=== PATIENT | female | born 1935 | race Caucasian/White ===

== ENCOUNTER 2019-10-09 17:58 | Inpatient (IN) ==
--- NOTE | 2019-10-09 18:25 | Emergency Department Note ---
Entered by Lizeth Ontiveros acting as a scribe for Alvarez Tobar DO History of Present Illness General Chief complaint: Arm Pain Stated complaint: CLAV/HUM FRACTURE Time Seen by Provider: 10/09/19 18:06 Source: patient and family History of Present Illness Onset (ago): day(s) 8 Location: right (humerus and clavicle ) Pain Consistency: + constant Maximum Pain Intensity: 5 Associated symptoms: + other (RUE pain, incresed swelling and black and blue brown to the broken clavicle and humerus, left arm pain per family) The patient is an 84 year old female who presents to the Emergency Room with c omplaints of arm pain. The family reports that they went to visit the patient 8 days ago at 12:00PM when they found her on the floor in her home. They assumed she was on the floor from a fall for about 2 says since her newspapers were not picked up outside. The patient reports that she hurt her shoulder and was taken to [facility] where she was told that she needed surgery to repair a broken right humerus and clavicle. Her family stopped by to visit her after work today when they noticed that her arm showed worsened black and blue brown as well as increased swelling. She denies injuring herself anywhere else but family reports that she was recently complaining of left arm pain. Family states that she is not currently on blood thinners but she was on Heparin in the past. She currently takes Synthroid, Tylenol, and Tramadol. The patient and her family offer no additional concerns at this time. Home Medications Home Medications Medication Instructions Recorded Confirmed Type acetaminophen [Tylenol] 650 mg PO QID 10/09/19 10/09/19 History cholecalciferol (vitamin D3) 1,000 unit PO DAILY 10/09/19 10/09/19 History [Vitamin D3] docusate sodium 100 mg PO BID 10/09/19 10/09/19 History levothyroxine 44 mcg PO .QSUNDAY 10/09/19 10/09/19 History levothyroxine 88 mcg PO [id number] 10/09/19 10/09/19 History menthol [Biofreeze (menthol)] 1 applic TOPICAL QID PRN 10/09/19 10/09/19 History nicotine 1 patch TRANSDERMAL DAILY 10/09/19 10/09/19 History ramipril 1.25 mg PO DAILY 10/09/19 10/09/19 History rosuvastatin 10 mg PO HS 10/09/19 10/09/19 History tramadol 25 mg PO Q8 PRN 10/09/19 10/09/19 History Allergies Allergy/AdvReac Type Severity Reaction Status Date / Time No Known Allergies Allergy Unverified 10/09/19 20:56 Past Med/Surg History Medical History No pertinent past medical history Surgical History No pertinent past surgical history Social History Feels Safe at Home: Yes Smoking Status: Never smoker Review of Systems See HPI for pertinent positives & negatives. and A total of 10 systems reviewed and were otherwise negative Physical Exam Vital Signs Vital Signs - 24 hr 10/09/19 18:03 10/09/19 19:39 10/09/19 19:50 Temperature 36.5 C Temperature Source Oral Pulse Rate 88 Pulse Rate [Left Finger] 58 L Respiratory Rate 18 18 Blood Pressure 211/67 H Blood Pressure [Left Arm] 219/91 H Blood Pressure Mean 115 Blood Pressure Mean [Left Arm] 133 Blood Pressure Position Sitting Blood Pressure Position [Left Arm] Sitting Pulse Oximetry 98 98 88 L Oxygen Delivery Method Room Air Room Air Room Air Oxygen Flow Rate Sepsis Recent Fever Within 48 Hours No Sepsis New/Unexplained Change in Mental Status No Sepsis Action Taken by Nursing No Action Required 10/09/19 20:02 10/09/19 20:12 10/09/19 22:31 Temperature Temperature Source Pulse Rate Pulse Rate [Left Finger] 64 55 L Respiratory Rate 16 22 Blood Pressure Blood Pressure [Left Arm] 192/100 H 153/71 H Blood Pressure Mean Blood Pressure Mean [Left Arm] 130 98 Blood Pressure Position Blood Pressure Position [Left Arm] Sitting Pulse Oximetry 99 100 95 Oxygen Delivery Method Nasal Cannula Nasal Cannula Nasal Cannula Oxygen Flow Rate 2 2 2 Sepsis Recent Fever Within 48 Hours Sepsis New/Unexplained Change in Mental Status Sepsis Action Taken by Nursing GENERAL: Patient is awake alert in no acute distress patient is resting comfortably and showing no signs of anxiety EYES: The conjunctivae are clear. The pupils are round and reactive. EARS, NOSE, MOUTH AND THROAT: The nose is without any evidence of any deformity. Mucous membranes are moist. Tongue is midline. NECK: The neck is nontender and supple. RESPIRATORY: Normal respiratory effort is noted there is no evidence of wheezing rhonchi or rales CARDIOVASCULAR: Regular rate and rhythm noted there no murmurs rubs or gallops normal S1 normal S2. GASTROINTESTINAL: The abdomen is soft. Abdomen is nontender. MUSCULOSKELETAL/EXTREMITIES: There is significant ecchymosis over the entire right upper extremity. The ecchymosis appears to start at the area of the distal clavicle and extends into the right hand. Pulses are symmetric in both hands. There is tenderness over the midportion of the right humerus. SKIN: There is no obvious evidence of any rash. Pedal edema was noted bilaterally. NEUROLOGIC: Patient is awake alert and oriented to person place and situation. Course Course 1809: Past medical records reviewed. The patient was evaluated in room B10. A complete history and physical exam was performed. 2139: I checked on the patient and she is resting comfortably. She will be seeing ortho on Friday. 2201: I spoke with Dr. Hernandez from ortho. At this point he recommends conservative management until ecchymosis and swelling are improved. The patient will be admitted to medicine. 2231: I spoke to Dr. Ibarra, [facility] who accepts the patient for admission. The patient verbally expressed understanding and agreement of the treatment plan. The patient will be evaluated for further treatment. Administered Medications Ioversol (Optiray 320 125ml) 116 ml IV ONCE PRN PRN Reason: Interaction Checking Stop: 10/13/19 19:22 Last Admin: 10/09/19 19:23 Dose: 116 ml Documented by: [id number] Discontinued Medications Fentanyl Citrate (Fentanyl Citrate) 50 mcg IV NOW STA Stop: 10/09/19 21:57 Last Admin: 10/09/19 22:01 Dose: 50 mcg Documented by: [id number] Furosemide (Lasix) 20 mg IV NOW STA Stop: 10/09/19 20:04 Last Admin: 10/09/19 20:12 Dose: 20 mg Documented by: [id number] Medical Decision Making Differential Diagnosis Differential diagnosis includes but is not limited to etiologies such as DVT, musculoskeletal, infection, joint effusion, trauma, lymphedema, idiopathic, CHF, as well as others were entertained. Medical Records Attestation: I reviewed the patient's medical records. Home Medications Current Medication List: was personally reviewed by me Laboratory Data Attestation: I reviewed the patient's lab results. Result diagrams: 10/09/19 18:34 10/09/19 18:33 Lab Results 10/09/19 10/09/19 10/09/19 Range/Units 18:33 18:33 18:34 WBC 4.80 (4.8-10.8) K/uL RBC 2.51 L (4.2-5.4) M/uL Hgb 9.1 L (12.0-16.0) g/dL POC Hgb (12.0-16.0) g/dl Hct 28.0 L (37-47) % POC Hct (37-47) % MCV 111.6 H (80-100) fL MCH 36.3 H (25-34) pg MCHC 32.5 (32-36) g/dL RDW Std Deviation 64.5 H (36.4-46.3) fL RDW Coeff of Amparo 16.6 H (11.5-14.5) % Plt Count 192 (130-400) K/uL MPV 10.5 H (7.4-10.4) fL Immature Gran % (Auto) 1.9 % Neut % (Auto) 59.9 % Lymph % (Auto) 30.0 % Osborne % (Auto) 4.0 % Eos % (Auto) 4.0 % Baso % (Auto) 0.2 % Immature Gran # (Auto) 0.09 H (0.00-0.02) K/uL Neut # (Auto) 2.88 (1.4-6.5) K/uL Lymph # (Auto) 1.44 (1.2-3.4) K/uL Osborne # (Auto) 0.19 (0.11-0.59) K/uL Eos # (Auto) 0.19 (0-0.5) K/uL Baso # (Auto) 0.01 (0-0.2) K/uL Absolute Nucleated RBC 0.04 H (0-0) K/uL Nucleated RBC % (auto) 0.8 % PT 10.5 (9.0-12.0) Seconds INR 1.0 (0.9-1.1) APTT 22.6 (21.0-31.0) Seconds PTT Ratio 0.8 POC Sodium (135-144) mEq/L Sodium 137 (136-145) mmol/L POC Potassium (3.3-5.0) mEq/L Potassium 3.7 (3.5-5.1) mmol/L POC Chloride (101-112) mEq/L Chloride 107 (98-107) mmol/L Carbon Dioxide 24 (21-32) mmol/L POC Total CO2 (24-31) mEq/l Anion Gap 6.0 (3-11) POC Anion Gap (16-25) mmol/L POC BUN (7-18) mg/dl BUN 23 H (7-18) mg/dl Creatinine 1.62 H (0.6-1.2) mg/dl POC Creatinine (0.6-1.3) mg/dl Est Cr Clr Drug Dosing 26.9 ml/min Est GFR ( Amer) 33.4 Est GFR (Non-Af Amer) 28.8 BUN/Creatinine Ratio 14.4 (10-20) Glucose 87 (70-99) mg/dl POC Glucose (other) (70-99) mg/dl Calcium 8.8 (8.5-10.1) mg/dl POC Ioniz Calcium Juan (1.12-1.32) mmol/l Total Bilirubin 0.5 (0.2-1) mg/dl AST 27 (15-37) U/L ALT 24 (12-78) U/L Alkaline Phosphatase 69 (45-117) U/L Troponin I < 0.015 (0-0.045) ng/ml Total Protein 6.8 (6.4-8.2) gm/dl Albumin 3.0 L (3.4-5.0) gm/dl Globulin 3.8 (2.5-4.0) gm/dl Albumin/Globulin Ratio 0.8 L (0.9-2) Lipase 171 (73-393) U/L 10/09/19 Range/Units 18:37 WBC (4.8-10.8) K/uL RBC (4.2-5.4) M/uL Hgb (12.0-16.0) g/dL POC Hgb 8.8 L (12.0-16.0) g/dl Hct (37-47) % POC Hct 26 L (37-47) % MCV (80-100) fL MCH (25-34) pg MCHC (32-36) g/dL RDW Std Deviation (36.4-46.3) fL RDW Coeff of Amparo (11.5-14.5) % Plt Count (130-400) K/uL MPV (7.4-10.4) fL Immature Gran % (Auto) % Neut % (Auto) % Lymph % (Auto) % Osborne % (Auto) % Eos % (Auto) % Baso % (Auto) % Immature Gran # (Auto) (0.00-0.02) K/uL Neut # (Auto) (1.4-6.5) K/uL Lymph # (Auto) (1.2-3.4) K/uL Osborne # (Auto) (0.11-0.59) K/uL Eos # (Auto) (0-0.5) K/uL Baso # (Auto) (0-0.2) K/uL Absolute Nucleated RBC (0-0) K/uL Nucleated RBC % (auto) % PT (9.0-12.0) Seconds INR (0.9-1.1) APTT (21.0-31.0) Seconds PTT Ratio POC Sodium 138 (135-144) mEq/L Sodium (136-145) mmol/L POC Potassium 3.7 (3.3-5.0) mEq/L Potassium (3.5-5.1) mmol/L POC Chloride 102 (101-112) mEq/L Chloride (98-107) mmol/L Carbon Dioxide (21-32) mmol/L POC Total CO2 22 L (24-31) mEq/l Anion Gap (3-11) POC Anion Gap 19.0 (16-25) mmol/L POC BUN 26 H (7-18) mg/dl BUN (7-18) mg/dl Creatinine (0.6-1.2) mg/dl POC Creatinine 1.7 H (0.6-1.3) mg/dl Est Cr Clr Drug Dosing ml/min Est GFR ( Amer) Est GFR (Non-Af Amer) BUN/Creatinine Ratio (10-20) Glucose (70-99) mg/dl POC Glucose (other) 88 (70-99) mg/dl Calcium (8.5-10.1) mg/dl POC Ioniz Calcium Juan 1.18 (1.12-1.32) mmol/l Total Bilirubin (0.2-1) mg/dl AST (15-37) U/L ALT (12-78) U/L Alkaline Phosphatase (45-117) U/L Troponin I (0-0.045) ng/ml Total Protein (6.4-8.2) gm/dl Albumin (3.4-5.0) gm/dl Globulin (2.5-4.0) gm/dl Albumin/Globulin Ratio (0.9-2) Lipase (73-393) U/L Imaging Data Radiologist's Impression: Radiology results as stated below per my review and the radiologist's interpretation: XR chest 1V portable HISTORY: 84 years-old Female Chest Pain acute atypical chest pain COMPARISON: None available TECHNIQUE: Portable AP view of the chest FINDINGS: Cardiac silhouette is enlarged. Calcified plaque of the thoracic aortic arch. Mild pulmonary vascular congestion. Bilateral reticular opacities with ill- defined left basilar consolidative densities. Mild blunting of the costophrenic angles. No pneumothorax or large pleural effusion. Ill-defined 5 mm nodular density of the lateral left midlung. Acute appearing displaced and mildly comminuted proximal right humerus fracture with 1.2 cm medial displacement. Fracture involves the greater tuberosity and surgical neck. Degenerative changes of the shoulders and spine. Mild convex left curvature of the upper thoracic spine. IMPRESSION: 1. Cardiomegaly with pulmonary vascular congestion and interstitial coarsening suggestive of pulmonary edema, atypical pneumonitis or chronic fibrotic changes. 2. Patchy left basilar opacities suggest atelectasis or pneumonitis. 3. Acute comminuted and mildly displaced fracture of the right proximal humerus. The above report was generated using voice recognition software. It may contain grammatical, syntax or spelling errors. Electronically signed by: Rafael Swartz M.D. 10/09/2019 6:[address] angio UE RT w inc wo if don HISTORY: 84 years-old Female swelling and eccchymosis acute right arm pain status post trauma COMPARISON: Chest radiograph of same day TECHNIQUE: CTA of the right upper extremity was obtained following the intravenous administration of 116 mL Optiray 320 IV contrast. 3-D coronal and sagittal MIPS were obtained from the axial data set and were submitted for re view. All measurements were obtained according to NASCET criteria. A dose lowering technique was used consistent with the principals of FELICE. FINDINGS: CTA: Imaged heart is enlarged. Calcified plaque of the aortic annulus. No thoracic aortic aneurysm or dissection. Severe calcified plaque of the thoracic aortic arch with moderate mixed plaque of the descending thoracic aorta and imaged upper abdominal aorta. 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 Severe mixed plaque at the iliac bifurcation results in 60% luminal narrowing of the proximal right common iliac artery. The right subclavian, axillary and brachial arteries appear patent. The opacified radial and ulnar arteries also appear unremarkable. No arterial occlusion identified. CT: Trace left pleural effusion. Moderate to severe emphysema. Groundglass right basilar opacities. Mild gallbladder distention with luminal filling defects suggestive of probable cholelithiasis. Cortical thinning of the right kidney. Right renal cysts. No adenopathy. Extensive colonic diverticulosis without acute diverticulitis. Fibroid uterus. There is an acute comminuted fractures of the proximal right humerus demonstrating 1.9 cm medial displacement of the humeral shaft with 1.6 cm impaction. Fracture involves the surgical neck and greater tuberosity. Humeral head is subluxed posteriorly within the glenoid fossa. Multiple comminuted bone fragments are noted adjacent to the fracture. Large samaria int effusion/hemarthrosis. There is moderate subcutaneous edema of the upper extremity, most pronounced at the level of the forearm and elbow. Demineralized appearance of the bones. Moderate glenohumeral and AC joint osteoarthritis. No additional acute fracture or dislocation identified. Degenerative changes of the carpus. There is a lipoma posterior to the right deltoid measuring up to 3.8 x 2.3 x 7.9 cm. IMPRESSION: 1. Acute comminuted, impacted and displaced right proximal humeral fracture as above with large joint effusion/hemarthrosis. 2. The right subclavian, axillary and brachial arteries appear patent and unremarkable without posttraumatic abnormality identified. 3. Moderate subcutaneous edema of the right upper extremity, likely posttraumatic 4. Trace left pleural effusion 5. Right lung base groundglass opacities suggest atelectasis or pneumonitis. 6. Fusiform dilation of the infrarenal abdominal aorta, 4.0 x 4.3 cm. 7. Additional findings as above. The above report was generated using voice recognition software. It may contain grammatical, syntax or spelling errors. Electronically signed by: Rafael Swartz M.D. 10/09/2019 7:52 PM US venous doppler UE RT HISTORY: 84 years-old Female swellinh acute pain and swelling of the right upper extremity with acute right humeral fracture COMPARISON: CTA of the right upper extremity of same day TECHNIQUE: Multiple real-time sonographic images of the right upper extremity d eep venous structures were obtained assessing grayscale appearance, color and spectral flow FINDINGS: Limited exam secondary to patient immobility. Edema is noted throughout the upper extremity. The basilic and ulnar veins are suboptimally visualized. Normal flow, and phasicity of the right M the deep venous structures without evidence of thrombus. IMPRESSION: Limited exam as above without evidence of deep venous thrombosis. The above report was generated using voice recognition software. It may contain grammatical, syntax or spelling errors. Electronically signed by: Rafael Swartz M.D. 10/09/2019 9:29 PM ECG Data Attestation: I personally reviewed and interpreted this ECG as follows: Indication: + other (fall) Rate (beats per minute): 58 Rhythm: + sinus bradycardia ECG Intervals/blocks: + Left bundle branch block ECG Findings: no PACs and no PVCs Comparison ECG Date: no prior available MDM Narrative The patient is an 84-year-old female who presented to the emergency department for an evaluation of upper extremity pain. The patient was recently involved in a trauma at home where she was admitted to a trauma center where she is from originally in [place]. The patient moved to our area to be with family members and to do rehab. The patient has a right humerus fracture which she suffered on the initial injury approximately a week ago. The patient presents to the emergency department today because of ecchymosis and swelling. According to the personal residential staff the arm was mottled. The skin is warm and dry. The pulses are symmetric in both hands. There is no DVT by Doppler and the CT angiogram did not show any acute arterial occlusion or contrast extravasation. There was significant hemarthrosis and bleeding which I assume is from the area of the fracture. I discussed the patient's laboratory and radiographic studies with her and her family members. I also discussed her case with the on-call orthopedic physician. At this time the patient does not require any specific orthopedic surgical care. She remains in a sling. Because of the other findings including pulmonary edema and hypoxia I discussed her case with the on- call [facility] hospitalist group. The patient was treated with pain medication as well as IV Lasix. She was feeling much better on subsequent reevaluation. Impression & Plan Pulmonary edema, Anemia, Hypoxia, Right humeral fracture, Traumatic hematoma of right upper arm Discharge Plan Visit Data Chief Complaint: Arm Pain Stated Complaint: CLAV/HUM FRACTURE ED Provider: Alvarez Tobar Discharge Problem: Pulmonary edema, Anemia, Hypoxia, Right humeral fracture, Traumatic hematoma of right upper arm Patient Disposition: Being Evaluated by Hospitalist Forms Stand Alone Forms: My [facility] Prescriptions Prescriptions: No Action tramadol 50 mg Tablet 25 mg PO Q8 PRN (Reason: Pain) RF: 0 levothyroxine 88 mcg Tablet 88 mcg PO [id number] RF: 0 levothyroxine 88 mcg Tablet 44 mcg PO .QSUNDAY RF: 0 docusate sodium 100 mg Tablet 100 mg PO BID RF: 0 ramipril 1.25 mg Capsule 1.25 mg PO DAILY RF: 0 nicotine 7 mg/24 hr Patch 24 Hour 1 patch TRANSDERMAL DAILY RF: 0 rosuvastatin 10 mg Tablet 10 mg PO HS RF: 0 acetaminophen [Tylenol] 325 mg Capsule 650 mg PO QID RF: 0 cholecalciferol (vitamin D3) [Vitamin D3] 1,000 unit Tablet,Chewable 1,000 unit PO DAILY RF: 0 Biofreeze (menthol) 4 % Gel 1 applic TOPICAL QID PRN (Reason: Pain) RF: 0 Referrals Referrals: Yadiel Kumar MD [Primary Care Provider] - Discharge Problem: Pulmonary edema Qualifiers: Chronicity: acute Qualified Code(s): J81.0 - Acute pulmonary edema Anemia Qualifiers: Anemia type: unspecified type Qualified Code(s): D64.9 - Anemia, unspecified Right humeral fracture Qualifiers: Encounter type: subsequent encounter Humerus Location: proximal Fracture type: closed Fracture alignment: displaced Fracture healing: with routine healing Traumatic hematoma of right upper arm Qualifiers: Encounter type: subsequent encounter Qualified Code(s): S40.021D - Contusion of right upper arm, subsequent encounter The scribe's documentation has been prepared under my direction and personally reviewed by me in its entirety. I confirm that the note above accurately reflects all work, treatment, procedures, and medical decision making performed by me.
[2019-10-09 18:51] LABS: Basophils # (auto) 0.01 K/uL (0-0.2); Basophils % (auto) 0.2 %; Eosinophils # (auto) 0.19 K/uL (0-0.5); Hemoglobin 9.1 g/dL (12.0-16.0); Immature Granulocytes # (auto) 0.09 K/uL (0.00-0.02); Immature Granulocytes % (auto) 1.9 %; Lymphocytes # (auto) 1.44 K/uL (1.2-3.4); Mean Corpuscular Hemoglobin 36.3 pg (25-34); Mean Corpuscular Hgb Conc 32.5 g/dL (32-36); Mean Corpuscular Volume 111.6 fL (80-100); Mean Platelet Volume 10.5 fL (7.4-10.4); Monocytes # (auto) 0.19 K/uL (0.11-0.59); Neutrophils # (auto) 2.88 K/uL (1.4-6.5); Neutrophils % (auto) 59.9 %; Nucleated RBC # (auto) 0.04 K/uL (0-0); Nucleated RBC % (auto) 0.8 %; Platelet Count 192 K/uL (130-400); RDW Coefficient of Variation 16.6 % (11.5-14.5); RDW Standard Deviation 64.5 fL (36.4-46.3); Red Blood Count 2.51 M/uL (4.2-5.4)
[2019-10-09 18:53] LABS: iSTAT Creatinine 1.7 mg/dl (0.6-1.3); iSTAT Hemoglobin 8.8 g/dl (12.0-16.0); iSTAT Ionized Calcium 1.18 mmol/l (1.12-1.32); iSTAT Potassium 3.7 mEq/L (3.3-5.0)
--- NOTE | 2019-10-09 18:53 | XRay Report ---
XR chest 1V portable HISTORY: 84 years-old Female Chest Pain acute atypical chest pain COMPARISON: None available TECHNIQUE: Portable AP view of the chest FINDINGS: Cardiac silhouette is enlarged. Calcified plaque of the thoracic aortic arch. Mild pulmonary vascular congestion. Bilateral reticular opacities with ill-defined left basilar consolidative densities. Mil d blunting of the costophrenic angles. No pneumothorax or large pleural effusion. Ill-defined 5 mm no dular density of the lateral left midlung. Acute appearing displaced and mildly comminuted proximal r ight humerus fracture with 1.2 cm medial displacement. Fracture involves the greater tuberosity and s urgical neck. Degenerative changes of the shoulders and spine. Mild convex left curvature of the uppe r thoracic spine. IMPRESSION: 1. Cardiomegaly with pulmonary vascular congestion and interstitial coarsening suggestive of pulmonar y edema, atypical pneumonitis or chronic fibrotic changes. 2. Patchy left basilar opacities suggest atelectasis or pneumonitis. 3. Acute comminuted and mildly displaced fracture of the right proximal humerus. The above report was generated using voice recognition software. It may contain grammatical, syntax o r spelling errors. Electronically signed by: Rafael Swartz M.D. 10/09/2019 6:51 PM
[2019-10-09 19:00] LABS: Alanine Aminotransferase 24 U/L (12-78); Aspartate Aminotransferase 27 U/L (15-37); BUN Creatinine Ratio 14.4 (10-20); Blood Urea Nitrogen 23 mg/dl (7-18); Calcium 8.8 mg/dl (8.5-10.1); Carbon Dioxide 24 mmol/L (21-32); Chloride 107 mmol/L (98-107); Creatinine Clr Calc Pharmacy 26.9 ml/min; Est GFR (African American) 33.4; Est GFR (Non-African American) 28.8; Glucose 87 mg/dl (70-99); Lipase 171 U/L (73-393); Potassium 3.7 mmol/L (3.5-5.1); Sodium 137 mmol/L (136-145)
[2019-10-09 19:01] LABS: Partial Thromboplastin Ratio 0.8; Partial Thromboplastin Time 22.6 Seconds (21.0-31.0); Prothrombin Time 10.5 Seconds (9.0-12.0)
[2019-10-09 19:05] LABS: Albumin Globulin Ratio 0.8 (0.9-2); Alkaline Phosphatase 69 U/L (45-117); Bilirubin,Total 0.5 mg/dl (0.2-1); Globulin 3.8 gm/dl (2.5-4.0); Total Protein 6.8 gm/dl (6.4-8.2); Troponin I < 0.015 ng/ml (0-0.045)
[2019-10-09] MEDS ORDERED: OPTIRAY 320 125ml IV PRN (19:23)
--- NOTE | 2019-10-09 19:54 | CT Scan Report ---
CT angio UE RT w inc wo if don HISTORY: 84 years-old Female swelling and eccchymosis acute right arm pain status post trauma COMPARISON: Chest radiograph of same day TECHNIQUE: CTA of the right upper extremity was obtained following the intravenous administration of 116 mL Optiray 320 IV contrast. 3-D coronal and sagittal MIPS were obtained from the axial data set a nd were submitted for review. All measurements were obtained according to NASCET criteria. A dose low ering technique was used consistent with the principals of FELICE. FINDINGS: CTA: Imaged heart is enlarged. Calcified plaque of the aortic annulus. No thoracic aortic aneurysm or diss ection. Severe calcified plaque of the thoracic aortic arch with moderate mixed plaque of the descend ing thoracic aorta and imaged upper abdominal aorta. 4.0 x 4.3 cm fusiform aneurysm dilation of the i nfrarenal abdominal aorta without rupture. Severe mixed plaque at the iliac bifurcation results in 60 % luminal narrowing of the proximal right common iliac artery. The right subclavian, axillary and bra chial arteries appear patent. The opacified radial and ulnar arteries also appear unremarkable. No ar terial occlusion identified. CT: Trace left pleural effusion. Moderate to severe emphysema. Groundglass right basilar opacities. Mild gallbladder distention with luminal filling defects suggestive of probable cholelithiasis. Cortical t hinning of the right kidney. Right renal cysts. No adenopathy. Extensive colonic diverticulosis witho ut acute diverticulitis. Fibroid uterus. There is an acute comminuted fractures of the proximal right humerus demonstrating 1.9 cm medial displacement of the humeral shaft with 1.6 cm impaction. Fractur e involves the surgical neck and greater tuberosity. Humeral head is subluxed posteriorly within the glenoid fossa. Multiple comminuted bone fragments are noted adjacent to the fracture. Large joint eff usion/hemarthrosis. There is moderate subcutaneous edema of the upper extremity, most pronounced at t he level of the forearm and elbow. Demineralized appearance of the bones. Moderate glenohumeral and A C joint osteoarthritis. No additional acute fracture or dislocation identified. Degenerative changes of the carpus. There is a lipoma posterior to the right deltoid measuring up to 3.8 x 2.3 x 7.9 cm. IMPRESSION: 1. Acute comminuted, impacted and displaced right proximal humeral fracture as above with large joint effusion/hemarthrosis. 2. The right subclavian, axillary and brachial arteries appear patent and unremarkable without posttr aumatic abnormality identified. 3. Moderate subcutaneous edema of the right upper extremity, likely posttraumatic 4. Trace left pleural effusion 5. Right lung base groundglass opacities suggest atelectasis or pneumonitis. 6. Fusiform dilation of the infrarenal abdominal aorta, 4.0 x 4.3 cm. 7. Additional findings as above. The above report was generated using voice recognition software. It may contain grammatical, syntax o r spelling errors. Electronically signed by: Rafael Swartz M.D. 10/09/2019 7:52 PM
[2019-10-09] MEDS ORDERED: FUROSEMIDE 40 MG/4 ML VIAL IV STA (20:03)
--- NOTE | 2019-10-09 21:32 | Ultrasound Report ---
US venous doppler UE RT HISTORY: 84 years-old Female swellinh acute pain and swelling of the right upper extremity with acut e right humeral fracture COMPARISON: CTA of the right upper extremity of same day TECHNIQUE: Multiple real-time sonographic images of the right upper extremity deep venous structures were obtained assessing grayscale appearance, color and spectral flow FINDINGS: Limited exam secondary to patient immobility. Edema is noted throughout the upper extremity. The basi lic and ulnar veins are suboptimally visualized. Normal flow, and phasicity of the right M the deep v enous structures without evidence of thrombus. IMPRESSION: Limited exam as above without evidence of deep venous thrombosis. The above report was generated using voice recognition software. It may contain grammatical, syntax o r spelling errors. Electronically signed by: Rafael Swartz M.D. 10/09/2019 9:29 PM
[2019-10-09] MEDS ORDERED: fentaNYL citrate 100 MCG/2 ML VIAL IV STA (21:56)
--- NOTE | 2019-10-10 00:53 | History & Physical Report ---
Date of Service October 10, 2019 Assessment & Plan (1) Traumatic hematoma of right upper arm: Patient is a 84yo F PMH hypothyroid, HTN, HLD, current daily smoker, who presents with worsening R arm pain and swelling 1 week after traumatic fall which resulted in R clavicle and R humerus fracture R humeral Fracture, hematoma -Admit to med/surg -Consult ortho, appreciate recs -Monitor H&H -Pain control Hypoxia -Appears transient -Pt is lifelong smoker; ?pulm edema on exam -On my assessment, pt 95% on room air -Cont to monitor CATALINA -unknown baseline -Gentle IVF Hypothyroid -Cont home regimen HTN/HLD -Cont home meds Code: Full, however unable to clarify with patient Dispo: admit to med/surg DVTP: holding in light of hematoma; SCDs. (2) Right humeral fracture: (3) Hypoxia: (4) Hypothyroid: (5) HTN (hypertension): (6) Hyperlipidemia: (7) CATALINA (acute kidney injury): History of Present Illness Chief Complaint: R arm pain and swelling Primary Care Provider: Yadiel Kumar MD Patient is a 84yo F transplant from [place], [facility] hypothyroid, HTN, HLD, current daily smoker, who presents with worsening R arm pain and swelling 1 week after traumatic fall which resulted in R clavicle and R humerus fracture. Patient lives alone in [place], and (per hx provided by family at bedside), she was found in her house on 10/03, with last well known 10/31; she was brought to a hospital in [place], [place] where she was treated in a trauma unit for a fractured R humerus and clavicle. Family frustrated as they were told she would have a nerve block for pain, then she would have surgery, and then conservative management was opted for. She was moved to a nursing facility ([facility]) from [place] on 10/07 to be closer to family here. Relative notes that while in [place], she would occasionally dip her oxygen level, but a test (2step?) was performed prior to discharge and it was deemed she did not qualify for oxygen. Relative notes her mental status has declined lately, but no formal diagnosis of dementia. Mental status significantly altered since injury. She also has a scheduled for an outpatient ortho appointment on 10/11/[address] Jj. In the ER, CTAngio of the arm revealed a large effusion/hemarthrosis. US was negative for PE. Ortho was called who recommend no action at this time, but would see this patient in the morning. Patient was noted to have her oxygen saturation drop to 88% on room air while in the ER. Due to pain level and new oxygen requirement, she will be admitted for further evaluation. Allergies Allergy/AdvReac Type Severity Reaction Status Date / Time No Known Allergies Allergy Unverified 10/09/19 20:56 Home Medications Home Medications Medication Instructions Recorded Confirmed Type acetaminophen [Tylenol] 650 mg PO QID 10/09/19 10/09/19 History cholecalciferol (vitamin D3) 1,000 unit PO DAILY 10/09/19 10/09/19 History [Vitamin D3] docusate sodium 100 mg PO BID 10/09/19 10/09/19 History levothyroxine 44 mcg PO .QSUNDAY 10/09/19 10/09/19 History levothyroxine 88 mcg PO 6XWK 10/09/19 10/09/19 History menthol [Biofreeze (menthol)] 1 applic TOPICAL QID PRN 10/09/19 10/09/19 History nicotine 1 patch TRANSDERMAL DAILY 10/09/19 10/09/19 History ramipril 1.25 mg PO DAILY 10/09/19 10/09/19 History rosuvastatin 10 mg PO HS 10/09/19 10/09/19 History tramadol 25 mg PO Q8 PRN 10/09/19 10/09/19 History Past Med/Surg History Medical History No pertinent past medical history Surgical History No pertinent past surgical history Social History (Updated 10/10/19 @ 02:18 by Halle Rowe MD) Preferred Language: Bengali Communication Ability: Effective Post Commander Required: No Current Living Situation: Personal Care Facility Other Information That Helps Us Care for You: No Feels Safe at Home: Yes Safety Concerns: Feels Safe At This Time Smoking Status: Current every day smoker Tobacco Type: cigarettes ; Do You Dip or Chew Tobacco: No ; Smoking End Date: 1 week ago ; Second Hand Exposure: No ; Tobacco Cessation Education Requested by Patient: No Hx Alcohol Use: Yes Hx Substance Use: No Review of Systems Review of Systems: All systems reviewed & are unremarkable except as noted in HPI & below and Unobtainable due to cognitive status Respiratory: no dyspnea Cardiovascular: no chest pain Gastrointestinal: no abdominal pain, no nausea and no vomiting Physical Exam Constitutional: WD/WN, vitals as above + obese Eyes: PERRL, conjunctivae normal, anicteric sclerae ENMT: external ear and nose normal, oropharynx normal Neck: normal visual inspection Respiratory: Auscultation: + diminished lung sounds Pt unable to follow commands to expose back or take deep breaths Cardiovascular: RRR, no murmur, no edema Gastrointestinal (Abdomen): normal bowel sounds, soft, nontender, no hepatosplenomegaly Musculoskeletal: Head/Neck/Chest: normocephalic and head atraumatic Extensive hematoma involving entirety of R arm and shoulder; R arm is tender and swollen. Both arms neurovascularly intact. Skin: no rashes, warm and dry Trauma: + contusion and + hematoma Neurologic: PERRL, EOMI, accommodation nl, no face palsy, no dysarthria moves all extremities Psychiatric: Orientation: alert; + not oriented x 3 Results & Data Vital Signs (Past 12 Hours) Vital Signs Temp Pulse Pulse Resp BP BP Pulse Ox 10/09/19 22:31 55 L 22 153/71 H 95 10/09/19 20:12 64 16 192/100 H 100 10/09/19 20:02 99 10/09/19 19:50 88 L 10/09/19 19:39 58 L 18 219/91 H 98 10/09/19 18:03 97.7 F 88 18 211/67 H 98 Laboratory Results 10/09/19 10/09/19 10/09/19 Range/Units 18:37 18:34 18:33 WBC 4.80 (4.8-10.8) K/uL RBC 2.51 L (4.2-5.4) M/uL Hgb 9.1 L (12.0-16.0) g/dL POC Hgb 8.8 L (12.0-16.0) g/dl Hct 28.0 L (37-47) % POC Hct 26 L (37-47) % MCV 111.6 H (80-100) fL MCH 36.3 H (25-34) pg MCHC 32.5 (32-36) g/dL RDW Std Deviation 64.5 H (36.4-46.3) fL RDW Coeff of Amparo 16.6 H (11.5-14.5) % Plt Count 192 (130-400) K/uL MPV 10.5 H (7.4-10.4) fL Immature Gran % (Auto) 1.9 % Neut % (Auto) 59.9 % Lymph % (Auto) 30.0 % [place] % (Auto) 4.0 % Eos % (Auto) 4.0 % Baso % (Auto) 0.2 % Immature Gran # (Auto) 0.09 H (0.00-0.02) K/uL Neut # (Auto) 2.88 (1.4-6.5) K/uL Lymph # (Auto) 1.44 (1.2-3.4) K/uL [place] # (Auto) 0.19 (0.11-0.59) K/uL Eos # (Auto) 0.19 (0-0.5) K/uL Baso # (Auto) 0.01 (0-0.2) K/uL Absolute Nucleated RBC 0.04 H (0-0) K/uL Nucleated RBC % (auto) 0.8 % PT (9.0-12.0) Seconds INR (0.9-1.1) APTT (21.0-31.0) Seconds PTT Ratio POC Sodium 138 (135-144) mEq/L Sodium 137 (136-145) mmol/L POC Potassium 3.7 (3.3-5.0) mEq/L Potassium 3.7 (3.5-5.1) mmol/L POC Chloride 102 (101-112) mEq/L Chloride 107 (98-107) mmol/L Carbon Dioxide 24 (21-32) mmol/L POC Total CO2 22 L (24-31) mEq/l Anion Gap 6.0 (3-11) POC Anion Gap 19.0 (16-25) mmol/L POC BUN 26 H (7-18) mg/dl BUN 23 H (7-18) mg/dl Creatinine 1.62 H (0.6-1.2) mg/dl POC Creatinine 1.7 H (0.6-1.3) mg/dl Est Cr Clr Drug Dosing 26.9 ml/min Est GFR ( Amer) 33.4 Est GFR (Non-Af Amer) 28.8 BUN/Creatinine Ratio 14.4 (10-20) Glucose 87 (70-99) mg/dl POC Glucose (other) 88 (70-99) mg/dl Calcium 8.8 (8.5-10.1) mg/dl POC Ioniz Calcium Juan 1.18 (1.12-1.32) mmol/l Total Bilirubin 0.5 (0.2-1) mg/dl AST 27 (15-37) U/L ALT 24 (12-78) U/L Alkaline Phosphatase 69 (45-117) U/L Troponin I < 0.015 (0-0.045) ng/ml Total Protein 6.8 (6.4-8.2) gm/dl Albumin 3.0 L (3.4-5.0) gm/dl Globulin 3.8 (2.5-4.0) gm/dl Albumin/Globulin Ratio 0.8 L (0.9-2) Lipase 171 (73-393) U/L 10/09/19 Range/Units 18:33 WBC (4.8-10.8) K/uL RBC (4.2-5.4) M/uL Hgb (12.0-16.0) g/dL POC Hgb (12.0-16.0) g/dl Hct (37-47) % POC Hct (37-47) % MCV (80-100) fL MCH (25-34) pg MCHC (32-36) g/dL RDW Std Deviation (36.4-46.3) fL RDW Coeff of Amparo (11.5-14.5) % Plt Count (130-400) K/uL MPV (7.4-10.4) fL Immature Gran % (Auto) % Neut % (Auto) % Lymph % (Auto) % [place] % (Auto) % Eos % (Auto) % Baso % (Auto) % Immature Gran # (Auto) (0.00-0.02) K/uL Neut # (Auto) (1.4-6.5) K/uL Lymph # (Auto) (1.2-3.4) K/uL [place] # (Auto) (0.11-0.59) K/uL Eos # (Auto) (0-0.5) K/uL Baso # (Auto) (0-0.2) K/uL Absolute Nucleated RBC (0-0) K/uL Nucleated RBC % (auto) % PT 10.5 (9.0-12.0) Seconds INR 1.0 (0.9-1.1) APTT 22.6 (21.0-31.0) Seconds PTT Ratio 0.8 POC Sodium (135-144) mEq/L Sodium (136-145) mmol/L POC Potassium (3.3-5.0) mEq/L Potassium (3.5-5.1) mmol/L POC Chloride (101-112) mEq/L Chloride (98-107) mmol/L Carbon Dioxide (21-32) mmol/L POC Total CO2 (24-31) mEq/l Anion Gap (3-11) POC Anion Gap (16-25) mmol/L POC BUN (7-18) mg/dl BUN (7-18) mg/dl Creatinine (0.6-1.2) mg/dl POC Creatinine (0.6-1.3) mg/dl Est Cr Clr Drug Dosing ml/min Est GFR ( Amer) Est GFR (Non-Af Amer) BUN/Creatinine Ratio (10-20) Glucose (70-99) mg/dl POC Glucose (other) (70-99) mg/dl Calcium (8.5-10.1) mg/dl POC Ioniz Calcium Juan (1.12-1.32) mmol/l Total Bilirubin (0.2-1) mg/dl AST (15-37) U/L ALT (12-78) U/L Alkaline Phosphatase (45-117) U/L Troponin I (0-0.045) ng/ml Total Protein (6.4-8.2) gm/dl Albumin (3.4-5.0) gm/dl Globulin (2.5-4.0) gm/dl Albumin/Globulin Ratio (0.9-2) Lipase (73-393) U/L Diagnostic Findings XR chest 1V portable HISTORY: 84 years-old Female Chest Pain acute atypical chest pain COMPARISON: None available TECHNIQUE: Portable AP view of the chest FINDINGS: Cardiac silhouette is enlarged. Calcified plaque of the thoracic aortic arch. Mild pulmonary vascular congestion. Bilateral reticular opacities with ill- defined left basilar consolidative densities. Mild blunting of the costophrenic angles. No pneumothorax or large pleural effusion. Ill-defined 5 mm nodular density of the lateral left midlung. Acute appearing displaced and mildly comminuted proximal right humerus fracture with 1.2 cm medial displacement. Fracture involves the greater tuberosity and surgical neck. Degenerative changes of the shoulders and spine. Mild convex left curvature of the upper thoracic spine. IMPRESSION: 1. Cardiomegaly with pulmonary vascular congestion and interstitial coarsening suggestive of pulmonary edema, atypical pneumonitis or chronic fibrotic changes. 2. Patchy left basilar opacities suggest atelectasis or pneumonitis. 3. Acute comminuted and mildly displaced fracture of the right proximal humerus. CT angio UE RT w inc wo if don HISTORY: 84 years-old Female swelling and eccchymosis acute right arm pain status post trauma COMPARISON: Chest radiograph of same day TECHNIQUE: CTA of the right upper extremity was obtained following the intravenous administration of 116 mL Optiray 320 IV contrast. 3-D coronal and sagittal MIPS were obtained from the axial data set and were submitted for review. All measurements were obtained according to NASCET criteria. A dose lowering technique was used consistent with the principals of FELICE. FINDINGS: CTA: Imaged heart is enlarged. Calcified plaque of the aortic annulus. No thoracic aortic aneurysm or dissection. Severe calcified plaque of the thoracic aortic arch with moderate mixed plaque of the descending thoracic aorta and imaged upper abdominal aorta. 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 Severe mixed plaque at the iliac bifurcation results in 60% luminal narrowing of the proximal right common iliac artery. The right subclavian, axillary and brachial arteries appear patent. The opacified radial and ulnar arteries also appear unremarkable. No arterial occlusion identified. CT: Trace left pleural effusion. Moderate to severe emphysema. Groundglass right basilar opacities. Mild gallbladder distention with luminal filling defects suggestive of probable cholelithiasis. Cortical thinning of the right kidney. Right renal cysts. No adenopathy. Extensive colonic diverticulosis without acute diverticulitis. Fibroid uterus. There is an acute comminuted fractures of the proximal right humerus demonstrating 1.9 cm medial displacement of the humeral shaft with 1.6 cm impaction. Fracture involves the surgical neck and greater tuberosity. Humeral head is subluxed posteriorly within the glenoid fossa. Multiple comminuted bone fragments are noted adjacent to the fracture. Large joint effusion/hemarthrosis. There is moderate subcutaneous edema of the upper extremity, most pronounced at the level of the forearm and elbow. Demineralized appearance of the bones. Moderate glenohumeral and AC joint osteoarthritis. No additional acute fracture or dislocation identified. Degenerative changes of the carpus. There is a lipoma posterior to the right deltoid measuring up to 3.8 x 2.3 x 7.9 cm. IMPRESSION: 1. Acute comminuted, impacted and displaced right proximal humeral fracture as above with large joint effusion/hemarthrosis. 2. The right subclavian, axillary and brachial arteries appear patent and unremarkable without posttraumatic abnormality identified. 3. Moderate subcutaneous edema of the right upper extremity, likely posttraumatic 4. Trace left pleural effusion 5. Right lung base groundglass opacities suggest atelectasis or pneumonitis. 6. Fusiform dilation of the infrarenal abdominal aorta, 4.0 x 4.3 cm. 7. Additional findings as above. The above report was generated using voice recognition software. It may contain grammatical, syntax or spelling errors. US venous doppler UE RT HISTORY: 84 years-old Female swellinh acute pain and swelling of the right upper extremity with acute right humeral fracture COMPARISON: CTA of the right upper extremity of same day TECHNIQUE: Multiple real-time sonographic images of the right upper extremity deep venous structures were obtained assessing grayscale appearance, color and spectral flow FINDINGS: Limited exam secondary to patient immobility. Edema is noted throughout the upper extremity. The basilic and ulnar veins are suboptimally visualized. Normal flow, and phasicity of the right M the deep venous structures without evidence of thrombus. IMPRESSION: Limited exam as above without evidence of deep venous thrombosis. Code Status & VTE Plan Code Status Full, relative not sure of wishes VTE Prophylaxis Plan VTE Prophylaxis will be ordered: Yes Supervising Physician Co-Signing Physician Notes Patient was seen and examined by me personally. I reviewed the chart, the orders and discussed the case in detail with Dr. Halle Rowe MD . I read this H&P and agree with its contents to entirety. Resident Activity Tracking Resident Involvement: Resident Care Provided Care Provided: Adult Hospital Medicine (1) Traumatic hematoma of right upper arm Encounter type: subsequent encounter Qualified Code(s): S40.021D - Contusion of right upper arm, subsequent encounter (2) Right humeral fracture Encounter type: subsequent encounter Fracture alignment: displaced Fracture healing: with routine healing Fracture type: closed Humerus Location: proximal
[2019-10-10] MEDS ORDERED: ONDANSETRON INJ 2 MG/ML 2 ML VIAL IV PRN (01:59)
[2019-10-10] MEDS ORDERED: ALUMINUM/MAGNESIUM SUSP 30 ML UDC PO PRN (01:59)
[2019-10-10] MEDS: ACETAMINOPHEN 325 MG TAB PO PRN ×2 (02:43→18:49)
[2019-10-10] MEDS: POLYETHYLENE (MIRALAX) 17 GM PACK PO PRN (02:45)
[2019-10-10] MEDS ORDERED: SODIUM CHLORIDE 0.9% 1000ML 1,000 ML IV SCH (03:00)
--- NOTE | 2019-10-10 04:38 | Billing Data ---
Coding Level of Care Code 45066 Initial Inpt Care Lvl 2
[2019-10-10 05:26] LABS: Basophils # (auto) 0.02 K/uL (0-0.2); Basophils % (auto) 0.4 %; Eosinophils # (auto) 0.21 K/uL (0-0.5); Eosinophils % (auto) 4.3 %; Hemoglobin 9.1 g/dL (12.0-16.0); Immature Granulocytes # (auto) 0.08 K/uL (0.00-0.02); Immature Granulocytes % (auto) 1.6 %; Lymphocytes # (auto) 1.34 K/uL (1.2-3.4); Lymphocytes % (auto) 27.6 %; Mean Corpuscular Hemoglobin 36.3 pg (25-34); Mean Corpuscular Hgb Conc 32.5 g/dL (32-36); Mean Corpuscular Volume 111.6 fL (80-100); Monocytes # (auto) 0.29 K/uL (0.11-0.59); Neutrophils # (auto) 2.91 K/uL (1.4-6.5); Neutrophils % (auto) 60.1 %; Nucleated RBC # (auto) 0.04 K/uL (0-0); Nucleated RBC % (auto) 0.7 %; Platelet Count 183 K/uL (130-400); RDW Coefficient of Variation 16.5 % (11.5-14.5); Red Blood Count 2.51 M/uL (4.2-5.4); White Blood Count 4.85 K/uL (4.8-10.8)
[2019-10-10] MEDS: MoRPHine SULFATE 2 MG/ML CARP IV PRN ×3 (05:27→20:15)
[2019-10-10 05:48] LABS: Macrocytosis Present; Polychromasia 1+; Toxic Vacuolation 1+
[2019-10-10 05:55] LABS: BUN Creatinine Ratio 13.9 (10-20); Calcium 8.8 mg/dl (8.5-10.1); Creatinine Clr Calc Pharmacy 27.3 ml/min; Est GFR (African American) 34.7; Potassium 3.7 mmol/L (3.5-5.1)
[2019-10-10] MEDS ORDERED: LEVOTHYROXINE SODIUM 88 MCG TABLET PO SCH (06:30)
--- NOTE | 2019-10-10 08:37 | Orthopedic Consultation ---
Date of Consultation October 10, 2019 Assessment & Plan (1) Right humeral fracture: We need to get some x-rays of the right shoulder. We do not have any original x-rays from [place]. We will continue to treat her in an arm sling. This is an expected amount of hematoma and swelling after this type of fracture. This fracture tends to bleed a lot. The ecchymosis and swelling can get worse over the first 2 weeks from the injury and then usually goes away by 4 weeks. We will get some x-rays of the shoulder. There is no emergent operative indications. She can follow-up with Dr. Jj this week as scheduled. She needs to be in a right arm sling at all times. She is orthopedically stable for discharge. Present on Admission?: Yes History of Present Illness Reason for Consultation: Right proximal humerus fracture Attending Physician: Radha Barragan MD History of Present Illness Zuleyka is a pleasant 84-year-old female who fell from a standing height about a week ago. She was living near [facility] at that time. She went to a local emergency room and radiographs demonstrated a right proximal humerus fracture. Over the last week she has moved to [place], a personal fpc in [place] to be near family. She has been having a lot of of ecchymosis and swelling of her right shoulder. She came to the emergency room and was admitted for medical observation. She currently has an appointment to see Dr. Jj this week. Orthopedics was consulted to evaluate and treat. Allergies Allergy/AdvReac Type Severity Reaction Status Date / Time No Known Allergies Allergy Unverified 10/09/19 20:56 Home Medications Home Medications Medication Instructions Recorded Confirmed Type acetaminophen [Tylenol] 650 mg PO QID 10/09/19 10/09/19 History cholecalciferol (vitamin D3) 1,000 unit PO DAILY 10/09/19 10/09/19 History [Vitamin D3] docusate sodium 100 mg PO BID 10/09/19 10/09/19 History levothyroxine 44 mcg PO .QSUNDAY 10/09/19 10/09/19 History levothyroxine 88 mcg PO [id number] 10/09/19 10/09/19 History menthol [Biofreeze (menthol)] 1 applic TOPICAL QID PRN 10/09/19 10/09/19 History nicotine 1 patch TRANSDERMAL DAILY 10/09/19 10/09/19 History ramipril 1.25 mg PO DAILY 10/09/19 10/09/19 History rosuvastatin 10 mg PO HS 10/09/19 10/09/19 History tramadol 25 mg PO Q8 PRN 10/09/19 10/09/19 History Patient History Medical History No pertinent past medical history Surgical History No pertinent past surgical history Social History Preferred Language: Burundian Communication Ability: Effective Kelp Or Seagrass Gatherer Required: No Current Living Situation: Personal Care Facility Other Information That Helps Us Care for You: No Feels Safe at Home: Yes Safety Concerns: Feels Safe At This Time Smoking Status: Current every day smoker Tobacco Type: cigarettes ; Do You Dip or Chew Tobacco: No ; Smoking End Date: 1 week ago ; Second Hand Exposure: No ; Tobacco Cessation Education Requested by Patient: No Hx Alcohol Use: Yes Hx Substance Use: No Review of Systems Constitutional: no fever, no chills, no fatigue, no anorexia, no weight loss and no weight gain Ear, Nose, Mouth, Throat: no ear pain, no epistaxis, no sinus pain/pressure, no mouth lesions, no bleeding gums and no sore throat Respiratory: no cough, no dyspnea, no hemoptysis and no wheezing Cardiovascular: no chest pain, no palpitations, no syncope and no edema Gastrointestinal: no heartburn, no nausea, no vomiting and no change in bowel habits Genitourinary: no dysuria, no urinary frequency, no urinary incontinence, no hematuria and no flank pain Musculoskeletal: as per Subjective / HPI Integumentary: no rash and no lesions Neurologic: no paralysis, no tingling, no numbness, no tremor(s), no seizure- like activity, no dizziness, no headache(s), no confusion and no memory loss Psychiatric: no depression, no abnormal sleep pattern, no anxiety and no con fusion Endocrine: no polydipsia, no polyphagia, no polyuria, no cold intolerance and no heat intolerance Hematologic / Lymphatic: no easy bleeding, no easy bruising, no coagulopathy and no lymphadenopathy Allergy / Immunological: no urticaria, no dyspnea and no rash Physical Exam Musculoskeletal: On physical examination of her right arm, there is a lot of ecchymosis and swelling. This is expected after this type of fracture. There are no abrasions, lesions, or lacerations of her skin. She has active motion of all of her fingers and active extension and flexion of her right wrist. She is a lot of tenderness palpation of her proximal humerus. I was unable to do a full strength evaluation. She is wearing her sling as instructed. Results & Data Vital Signs (Past 12 Hours) Vital Signs Temp Pulse Resp BP Pulse Ox 10/10/19 07:40 36.6 C 57 L 18 153/81 H 92 10/10/19 04:00 157/79 H 10/10/19 01:45 36.5 C 92 H 14 178/81 H 92 10/10/19 01:05 61 24 173/66 H 96 10/09/19 22:31 55 L 22 153/71 H 95 Laboratory Results H & H 10/09/19 10/10/19 Range/Units 18:34 05:07 Hgb 9.1 L 9.1 L (12.0-16.0) g/dL Hct 28.0 L 28.0 L (37-47) % Coagulation 10/09/19 Range/Units 18:33 INR 1.0 (0.9-1.1) Diagnostic Findings Chest x-ray reviewed by myself in the office today does show a transverse right proximal humerus fracture. I do not see any significant clavicle fracture. It is only an AP view. PG Care Time/CCT Total # of Minutes Spent Total Time Spent with Patient: Total time spent is greater than 50% in coordination of care (as documented) at patient's floor/unit and/or counseling patient: (1) Right humeral fracture Encounter type: subsequent encounter Fracture alignment: displaced Fracture healing: with routine healing Fracture type: closed Humerus Location: proximal
[2019-10-10] MEDS: ENALAPRIL MALEATE 5 MG TAB PO SCH (08:56)
[2019-10-10] MEDS: NICOTINE 14 MG/24 HR PATCH TD SCH (08:57)
[2019-10-10] MEDS: DOCUSATE SODIUM 100 MG CAP PO SCH ×2 (08:57→20:13)
--- NOTE | 2019-10-10 10:01 | XRay Report ---
XR shoulder RT min 2V routine HISTORY: 84 years-old Female Right proximal humerus fracture acute right upper extremity pain COMPARISON: Chest radiograph 10/09/2019 TECHNIQUE: 2 views of the right shoulder FINDINGS: Acute comminuted and displaced fracture of the right proximal humerus with fractures involving the gr eater tuberosity and surgical neck redemonstrated with unchanged alignment. Demineralized appearance of the bones with mild to moderate glenohumeral and moderate AC joint degenerative change. Soft tissu e swelling surrounds the right shoulder. Imaged lung saldivar appear clear. IMPRESSION: Unchanged alignment of the acute comminuted and displaced proximal humeral fracture. The above report was generated using voice recognition software. It may contain grammatical, syntax o r spelling errors. Electronically signed by: Rafael Swartz M.D. 10/10/2019 10:00 AM
--- NOTE | 2019-10-10 13:16 | Discharge Summary ---
Date of Service October 10, 2019 Admission HPI Per Admitting Provider Patient is a 84yo F transplant from [place], [facility] hypothyroid, HTN, HLD, current daily smoker, who presents with worsening R arm pain and swelling 1 week after traumatic fall which resulted in R clavicle and R humerus fracture. Patient lives alone in [place], and (per hx provided by family at bedside), she was found in her house on 10/03, with last well known 10/31; she was brought to a hospital in [place], [place] where she was treated in a trauma unit for a fractured R humerus and clavicle. Family frustrated as they were told she would have a nerve block for pain, then she would have surgery, and then conservative management was opted for. She was moved to a nursing facility ([facility] [place] [facility]) from [place] on 10/07 to be closer to family here. Relative notes that while in [place], she would occasionally dip her oxygen level, but a test (2step?) was performed prior to discharge and it was deemed she did not qualify for oxygen. Relative notes her mental status has declined lately, but no formal diagnosis of dementia. Mental status significantly altered since injury. She also has a scheduled for an outpatient ortho appointment on 10/11/[address] Jj. In the ER, CTAngio of the arm revealed a large effusion/hemarthrosis. US was negative for PE. Ortho was called who recommend no action at this time, but would see this patient in the morning. Patient was noted to have her oxygen saturation drop to 88% on room air while in the ER. Due to pain level and new oxygen requirement, she will be admitted for further evaluation. Discharge Data Allergies Allergy/AdvReac Type Severity Reaction Status Date / Time No Known Allergies Allergy Unverified 10/09/19 20:56 Consultations 10/09/19 22:22 ED Decision to Admit Stat 10/10/19 01:59 Consult Case Management - Discharge Planning Routine Consult Orthopedic Surgery Routine Ordered Studies 10/09/19 18:15 CT angio UE RT w inc wo if don Stat 10/09/19 19:57 US venous doppler UE RT Stat Hospital Course (1) Traumatic hematoma of right upper arm: (2) Right humeral fracture: (3) Hypoxia: (4) Hypothyroid: (5) HTN (hypertension): (6) Hyperlipidemia: (7) CATALINA (acute kidney injury): Discharge Plan Discharge Items Patient Disposition: Personal [facility] Reason For Visit: HEMATOMA, NEW OXYGEN DEMAND Discharge Diagnosis: R humerus fracture anemia borderline hypoxia Condition on Discharge: Good Health Concerns: please remain tobacco free. consider medication assistance like nicotine patches. please talk to your PCP about this Activity: Resume your previous activity Activity Comment: as tolerated. assistance to avoid falling. further instructi ons per ortho Lifting: None Non-emergency contact: Primary Care Provider and Surgeon Call non-emergency contact if: your pain is worsening Follow-up/Referrals: Yadiel Kumar MD [Primary Care Provider] - Nathan Jj MD [Surgeon] - (as scheduled on 10.11.2019) Diet: Regular Addtl Attending Provider Instructions: physical therapy at your assisted living, please ask your PCP for a script for the PT and a referral if your Tramadol is not controlling your pain, please talk to your PCP, so pain meds can be titrated Pending Studies at Discharge: No Stand-Alone Forms: My [employer], Smoking Cessation Skilled Items Patient informed of condition?: Yes DNR: No Discharge Level of Care: Other Communicable Disease: No Discharge Prognosis: Stable Lines: None Urinary Catheter: No Medications and DC Order Prescriptions: Continued tramadol 50 mg Tablet 25 mg PO Q8 PRN (Reason: Pain) RF: 0 levothyroxine 88 mcg Tablet 88 mcg PO 6XWK RF: 0 levothyroxine 88 mcg Tablet 44 mcg PO .QSUNDAY RF: 0 docusate sodium 100 mg Tablet 100 mg PO BID RF: 0 ramipril 1.25 mg Capsule 1.25 mg PO DAILY RF: 0 nicotine 7 mg/24 hr Patch 24 Hour 1 patch TRANSDERMAL DAILY RF: 0 rosuvastatin 10 mg Tablet 10 mg PO HS RF: 0 acetaminophen [Tylenol] 325 mg Capsule 650 mg PO QID RF: 0 cholecalciferol (vitamin D3) [Vitamin D3] 1,000 unit Tablet,Chewable 1,000 unit PO DAILY RF: 0 Biofreeze (menthol) 4 % Gel 1 applic TOPICAL QID PRN (Reason: Pain) RF: 0 Discharge Orders: Discharge Order (Routine); Ordered 10/10/19 Ordered By: Radha Barragan Admission Data Admit Date/Time: 10/10/19 00:47 Attending Provider: Radha Barragan Admit Provider: Halle Rowe Primary Care Provider: Yadiel Kumar Other Providers: Donell Ibarra ; Fermín Hernandez
--- NOTE | 2019-10-10 14:10 | Hospitalist Progress Note ---
Date of Service October 10, 2019 Assessment & Plan (1) Acute respiratory failure with hypoxia: fluctuating 02 sats but also mostly hypoxic. 84% on ra at rest today. mild STERLING but no rest SOB lungs clear CTA chest suggests mild CHF. creat=1.57 makes empiric diuresis a little riskier mod-sev emphysema by CT and ongoing cigarette smoker some atelectasis which could be from recent trauma and immobility ruled out for VTE ...smoking cessation counseling ...nicotine patch ...incentive spirometry ...Nebs ...stop IVF and give single dose of IV diuretics ...pulmonary consultation ...may need chronic home 02 (2) Emphysema lung: see problem #1... ARF w/ hypoxia (3) Cigarette smoker: see problem #1... ARF w/ hypoxia (4) Right humeral fracture: appreciate Ortho input nonsurgical treatment planned for now gentle analgesics ortho reports that the volume of hemarthrosis is as expected for this injury. ...should re-absorb so just monitor ...associated acute blood loss anemia. stable and dont expect it to drop further f/u with outpt ortho (5) Clavicle fracture: see problem above....humerus fx Present on Admission?: Yes (6) Traumatic hematoma of right upper arm: see problem above....humerus fx Present on Admission?: Yes (7) Acute blood loss anemia: see problem above....humerus fx Present on Admission?: Yes (8) CATALINA (acute kidney injury): elevated creat but not sure what is baseline CATALINA vs CKD3 or a combination of both ...obtain records from [facility] ...monitor closely Present on Admission?: Yes (9) Hypothyroid: cont LT4 check records from [facility] as it is very likely they checked TFTs last week Present on Admission?: Yes (10) HTN (hypertension): continue DON-I increase dose if SBP persistently elevated. was 150-170s but 119 now Present on Admission?: Yes (11) Hyperlipidemia: continue statin Present on Admission?: Yes Subjective R arm pain is controlled. 1 mild assist to help her in and out of bed mostly to held hold/support the RUE RUE is in sling appreciate orthopedic input. 02 sat = 84% on ra. no SOB at rest. she is a smoker. No explanation for the hypoxia so further evaluation is ordered CTA chest: no PE. Mod-sev emphysema. mild CHF with trace pleural effusions. atx. R prox humerus fx HPI . 84yo F from [place] (prev lived independently) was hospitalized 12.1 thru 10.07.2019 for prox humerus fx and clavicle fx wo surg intervention. She was found on the ground of her house after not being seen/heard from for 48 hrs. She was moved t o an AL ([facility]) in [place] to be near her family for support. she has an appt with local ortho on Friday. Dr. Urbina. family reports that her 02 sats=50s during her admission but then told that she didnt need to DC on home . pt is a smoker and has no known pulm dx. Relative notes her mental status has declined lately, but no formal diagnosis of dementia. Mental status significantly altered since injury. Pt p/w to our facility with worsening R arm pain and swelling. ED: CTA L arm: a large effusion/hemarthrosis. 02 sats dropped to 88% on ra. she wasnt really c/o SOB but she was also relative sedentary Review of Systems Review of Systems: Positive ROS: as in Subjective mild STERLING. no rest SOB Constitutional: no fevers HENT: Negative for sore throat. Cardiovascular: Negative for chest pain and palpitations. Gastrointestinal: Negative for abdominal pain, diarrhea, nausea and vomiting. Genitourinary: Negative for dysuria. Physical Exam Physical Exam: Abnormal Exam: RUE is in sling. R hand is neurovascularly intact Constitutional: No distress. HENT: Mouth/Throat: Oropharynx is clear and moist. Eyes: Conjunctivae are normal. No scleral icterus. Cardiovascular: Normal RRR and normal heart sounds. No murmur heard. no gallop and no friction rub. Pulmonary/Chest: Effort normal and breath sounds normal. No respiratory distress. no wheezing no rales. Abdominal: Soft. Bowel sounds are normal. no distension. There is no tenderness. Neurological: alert. oriented. no confusion detected at this time Psychiatric: Mood, affect and judgment normal. Results & Data Vital Signs (Past 12 Hours) Vital Signs Temp Pulse Resp BP Pulse Ox 10/10/19 13:27 84 L 10/10/19 07:40 36.6 C 57 L 18 153/81 H 92 10/10/19 04:00 157/79 H Laboratory Results WBC=4.8 hgb=9. uob=344 creat=1.57 BUN=22 (1) Traumatic hematoma of right upper arm Encounter type: subsequent encounter Qualified Code(s): S40.021D - Contusion of right upper arm, subsequent encounter (2) Right humeral fracture Encounter type: subsequent encounter Fracture alignment: displaced Fracture healing: with routine healing Fracture type: closed Humerus Location: proximal
[2019-10-10] MEDS ORDERED: OPTIRAY 320 125ml IV PRN (14:51)
--- NOTE | 2019-10-10 15:05 | CT Scan Report ---
CT angio chest PE protocol CT DOSE: 856.80 mGy.cm HISTORY: 84 years-old Female with hypoxia. Acute hypoxia TECHNIQUE: Multiple CTA images of the chest were obtained after the intravenous administration of 106 ml Optiray 320. Coronal and sagittal MIPS were obtained from the axial data set and were submitted for review. All measurements were obtained according to NASCET criteria. A dose lowering technique w as utilized adhering to the principles of ALARA. COMPARISON: Chest radiograph 10/09/2019, CTA of the right upper extremity 10/09/2019 FINDINGS: CTA: Moderate cardiomegaly. No pericardial effusion. Coronary arterial calcifications are noted. Calcifica tions of the aortic annulus with moderate mixed plaque of the thoracic aorta. No thoracic aortic aneu rysm or dissection. There is patency of the imaged great vessels. Reflux of contrast into the IVC. Th e pulmonary arterial tree is opacified to the level of the subsegmental branches and demonstrates no filling defects to suggest pulmonary thromboembolic disease. CT CHEST: No large thyroid nodule. There are multiple mildly enlarged mediastinal and hilar lymph nodes present with paratracheal lymph nodes measuring up to 12 mm in short axis. Trace pleural effusions. No pneum othorax. Moderate to severe emphysema. Bilateral bronchial wall thickening. Intralobular septal thick ening is most pronounced in the mid and lower lung zones. Bilateral groundglass opacities are most pr onounced within the lingula and right lower lobe. Consolidation of the basal left lower lobe with are as of mucous plugging. Mild biapical pleural-parenchymal scarring. 5 mm fissural nodule of the right midlung, image 152 series 3 is likely benign. Additional 5 mm solid nodule seen within the right midd le lobe lateral segment on image 112 series 4 and image 117 series 4. A few likely benign subpleural nodules of the left upper lobe measure up to 3 mm. No acute processes of the imaged upper abdomen. Cysts of the superior pole right kidney are noted. Ac ollie comminuted and displaced fracture of the right proximal humerus with large joint effusion/hemarth rosis and moderate deep tissue edema redemonstrated. Demineralized appearance of the bones. Multiple healed remote left-sided rib fractures. IMPRESSION: 1. Cardiomegaly without thoracic aortic aneurysm or evidence of pulmonary thromboembolic disease. 2. Trace pleural effusions with mild pulmonary edema. 3. Asymmetric left lung base consolidation with left basilar mucous plugging suggests atelectasis or pneumonia. 4. Mild mediastinal and hilar adenopathy, likely reactive. 5. Acute comminuted and displaced fracture of the right proximal humerus with large joint effusion an d considerable deep tissue edema redemonstrated. 6. There are a few scattered solid pulmonary nodules as above measuring up to 5 mm. Please refer to below summary of Fleischner criteria recommendations for follow-up of incidental CT n odules (Steven Ochoa, Guidelines for management of small pulmonary nodules detected on CT scans: A sta tement from the Fleischner Society, Radiology 237: [phone].) SOLID NODULES Multiple nodules size: <6 mm * Low risk patients: no routine follow-up * high risk patients: optional CT at 12 months Note: newly detected indeterminate nodule in persons 35 years of age or older. * Low risk patients: minimal or absent history of smoking and/or other known risk factors * high risk patients: history of smoking or of other known risk factors (e.g. first degree relative with lung cancer, or exposure to asbestos, radon, uranium) * if a nodule up to 8 mm is partly solid or is ground glass further follow-up is required after 24 m onths to exclude possible slow growing adenocarcinoma (JOYCE) The above report was generated using voice recognition software. It may contain grammatical, syntax o r spelling errors. Electronically signed by: Rafael Swartz M.D. 10/10/2019 3:03 PM
[2019-10-10] MEDS ORDERED: FUROSEMIDE 20 MG in SYRINGE 0 ML IV STA (15:19)
[2019-10-10] MEDS: ALBUT/IPRATROP 3MG/0.5MG NEB 3 ML VIAL NEB SCH (19:15)
[2019-10-10] MEDS: ROSUVASTATIN CALCIUM 10 MG TAB PO SCH (20:13)
[2019-10-11] MEDS: ACETAMINOPHEN 325 MG TAB PO PRN ×4 (01:41→18:51)
[2019-10-11] MEDS: LEVOTHYROXINE SODIUM 88 MCG TABLET PO SCH (05:34)
--- NOTE | 2019-10-11 06:46 | Orthopedic Progress Note ---
Date of Service October 11, 2019 Assessment & Plan (1) Closed fracture of right proximal humerus: The x-rays of the right shoulder show a moderately displaced right proximal humerus fracture. There is no signs of a clavicle fracture. She can be treated in an arm sling and follow-up with Dr. Jj as scheduled this week. She is a poor operative candidate given her medical history. She is not having too much pain right now. She can be discharged when medically stable. If there are any other questions regarding her care please feel free to call me personally on my cell phone at [phone] Present on Admission?: Yes Subjective Zuleyka was seen and examined at bedside this morning. Overall her shoulder is doing fairly well. She is not having much pain. She is wearing her sling as instructed. She has no complaints. Review of Systems Review of Systems: All systems reviewed & are unremarkable except as noted in HPI & below Physical Exam Musculoskeletal: On physical examination of her right shoulder, there is ecchymosis around the entire shoulder region. She has some swelling of her forearm and her hand. She has active motion of all of her fingers and active motion of her wrist. She is wearing her sling as instructed. She has tend erness palpation in the area. Results & Data Vital Signs (Past 12 Hours) Vital Signs Temp Pulse Resp BP Pulse Ox 10/10/19 22:46 36.5 C 57 L 17 123/71 93 10/10/19 19:15 80 20 95 Diagnostic Findings X-rays of the right shoulder were reviewed personally. There is a possible two- part fracture of the right proximal humerus. It is slightly translated and displaced anteriorly. There is no signs of clavicle fracture. There is no dislocation. PG Care Time/CCT Total # of Minutes Spent Total Time Spent with Patient: Total time spent is greater than 50% in coordination of care (as documented) at patient's floor/unit and/or counseling patient:
[2019-10-11] MEDS: ALBUT/IPRATROP 3MG/0.5MG NEB 3 ML VIAL NEB SCH ×4 (07:02→19:18)
[2019-10-11] MEDS: DOCUSATE SODIUM 100 MG CAP PO SCH ×2 (08:33→20:07)
[2019-10-11] MEDS: NICOTINE 14 MG/24 HR PATCH TD SCH (08:33)
[2019-10-11] MEDS: MoRPHine SULFATE 2 MG/ML CARP IV PRN (09:44)
--- NOTE | 2019-10-11 10:47 | XCELERA ---
[id number] \\[email or web address]\PDF_[email or web address]\[id number]
[2019-10-11] MEDS: OXYCODONE HCL IR 5 MG TAB (IMMEDIATE RELEASE) PO PRN ×2 (15:06→23:37)
--- NOTE | 2019-10-11 16:32 | Hospitalist Progress Note ---
Date of Service October 11, 2019 Assessment & Plan (1) Traumatic hematoma of right upper arm: Patient is a 84yo F PMH hypothyroid, HTN, HLD, current daily smoker, who presents with worsening R arm pain and swelling 1 week after traumatic fall which resulted in R humerus fracture R humeral Fracture, hematoma Closed fracture right proximal humerus moderate displacement Monitor H&H -hemoglobin stable at 9.1 Pain control: Tylenol 650 mg every 4 hours as needed, oxycodone 5 mg every 6 hours as needed Ortho consulted: Sling follow-up with Dr. Pulido this week, poor surgical candidate Acute blood loss anemia Hemoglobin stable at 9.1 Likely in the setting of hemarthrosis/hematomas Monitor CBC Transient hypoxia Likely in the setting of mild CHF versus emphysema versus morphine versus acute anemia CTA chest: Mild CHF, moderate to severe emphysema Per nursing patient tended to desat after him morphine 2 mg IV, switch to oxycodone instead Supplemental O2 as needed, overnight pulse ox Received Lasix x1 in the ED Lasix 20 mg IV x1 ordered for further diuresis DuoNeb every 4 hours Heaven Encourage smoking cessation CATALINA versus CKD3 BUN/creatinine 22/1.57, stable despite receiving Lasix unknown baseline, GFR 30 Gentle p.o. hydration only Hypothyroid Cont home levothyroxine HTN/HLD Cont home enalapril and rosuvastatin Code: Full Dispo: admit to med/surg DVTP: holding in light of hematoma; SCDs. (2) Hypothyroid: (3) HTN (hypertension): (4) Hyperlipidemia: (5) CATALINA (acute kidney injury): (6) Macrocytosis: (7) Morbid obesity with BMI of 40.0-44.9, adult: (8) Pathological fracture of humerus due to osteoporosis: Supervising Physician Co-Signing Physician Notes Resident Physician Supervision Note: I interviewed and examined the patient. Discussed with Dr. Tatiana Landers and agree with findings and plan as documented in the note. Any exceptions or clarifications are listed here: none. Pt awake/alert during my bedside rounds. c/o right shoulder pain. She was able to answer all questions and give me full history. admits to ongoing smoking for many years. She is still requiring NC O2. Exam: gen - NAD, obese mouth - MMM heart - RRR, s1 s2 lungs - decreased BS bases, no wheeze, no rales abd - soft NT ND BS+ musculo - right shoulder with significant swelling, ecchymoses; sling in place skin - hematoma/ecchymoses right shoulder extending down the arm to the hand; finger tips both hands cool but cap refill about 2 sec; minimal clubbing fingernails ext - no edema of ankles labs - macrocytosis - MCV>110 WBC count low-normal Hemoglobin 9.1 Cr 1.5 A/P: 1. likely osteoporotic fracture in setting of trauma of right humerus; nonoperative Rx per ortho; pain control; check 25 OH vit D am 2. macrocytosis - check b12/folate in am 3. CKD - stage uncertain - repeat BMP am 4. hypoxia - likely multifactorial - ?acute diastolic CHF +/- COPD +/- LLL pneumonia +/- hypoventilation in setting of narcotics for right shoulder fracture Give lasix x 1 again today Consider abx for LLL infiltrate on chest CT Judicious use of narcotics 5. acute blood loss anemia - h/h stable today; cbc in am dispo planning Documented By: Prasanna Hernandez MD Subjective This afternoon patient reports right shoulder pain. Patient reports losing balance and falling on her right shoulder and side prior to arrival. Patient reports when sleeps occasionally her numbers drop and she requires oxygen but does not feel short of breath. Currently denies any shortness of breath, chest pain, headache, lightheadedness, abdominal pain, nausea, vomiting, diarrhea, constipation, hematuria, dysuria. Review of Systems Review of Systems: As per HPI Physical Exam Physical Exam: General: In NAD Neuro: A&O x 4 Pulm: mild bibasilar crackles appreciated, equal breath sounds bilaterally CV: RRR, no m/r/g Abdomen:+BS, no TTP in all quadrants, non-distended MSK: R arm in sling, R shoulder TTP, extensive ecchymosis involving R shoulder/arm/hand, upper back, and R flank, radial pulse 2+ bilaterally, able to move R hand fingers, sensation intact LE: no LE edema, no calf TTP Results & Data Vital Signs (Past 12 Hours) Vital Signs Temp Pulse Pulse Resp BP Pulse Ox 10/11/19 15:09 62 18 92 10/11/19 14:56 36.7 C 62 17 118/56 L 91 10/11/19 10:54 73 18 82 L 10/11/19 08:14 36.5 C 56 L 12 128/78 94 10/11/19 07:05 67 18 87 L Resident Activity Tracking Resident Involvement: Resident Care Provided Care Provided: Adult Hospital Medicine (1) Traumatic hematoma of right upper arm Encounter type: subsequent encounter Qualified Code(s): S40.021D - Contusion of right upper arm, subsequent encounter
[2019-10-11] MEDS ORDERED: FUROSEMIDE 20 MG in SYRINGE 0 ML IV ONE (19:45)
[2019-10-11] MEDS: ROSUVASTATIN CALCIUM 10 MG TAB PO SCH (20:07)
[2019-10-11] MEDS: MAGNESIUM HYDROXIDE SUSP 30 ML UDC PO PRN (23:37)
[2019-10-12] MEDS: LEVOTHYROXINE SODIUM 88 MCG TABLET PO SCH (04:25)
[2019-10-12] MEDS: ACETAMINOPHEN 325 MG TAB PO PRN ×2 (04:25→16:14)
[2019-10-12 05:31] LABS: Basophils # (auto) 0.01 K/uL (0-0.2); Basophils % (auto) 0.2 %; Hematocrit (blood only) 28.5 % (37-47); Hemoglobin 9.2 g/dL (12.0-16.0); Immature Granulocytes # (auto) 0.06 K/uL (0.00-0.02); Immature Granulocytes % (auto) 1.4 %; Lymphocytes # (auto) 1.07 K/uL (1.2-3.4); Lymphocytes % (auto) 25.1 %; Mean Corpuscular Hemoglobin 36.7 pg (25-34); Mean Corpuscular Hgb Conc 32.3 g/dL (32-36); Mean Corpuscular Volume 113.5 fL (80-100); Mean Platelet Volume 10.8 fL (7.4-10.4); Monocytes # (auto) 0.18 K/uL (0.11-0.59); Monocytes % (auto) 4.2 %; Neutrophils # (auto) 2.64 K/uL (1.4-6.5); Neutrophils % (auto) 62.1 %; Platelet Count 175 K/uL (130-400); RDW Coefficient of Variation 17.4 % (11.5-14.5); RDW Standard Deviation 69.6 fL (36.4-46.3); Red Blood Count 2.51 M/uL (4.2-5.4); White Blood Count 4.26 K/uL (4.8-10.8)
[2019-10-12 05:51] LABS: BUN Creatinine Ratio 13.9 (10-20); Calcium 8.4 mg/dl (8.5-10.1); Creatinine Clr Calc Pharmacy 23.3 ml/min; Est GFR (African American) 28.7; Est GFR (Non-African American) 24.7; Potassium 3.6 mmol/L (3.5-5.1)
[2019-10-12 05:54] LABS: Macrocytosis Present; Polychromasia 1+
[2019-10-12] MEDS: ALBUT/IPRATROP 3MG/0.5MG NEB 3 ML VIAL NEB SCH ×4 (07:08→19:44)
[2019-10-12] MEDS: OXYCODONE HCL IR 5 MG TAB (IMMEDIATE RELEASE) PO PRN ×2 (07:39→13:47)
[2019-10-12] MEDS: DOCUSATE SODIUM 100 MG CAP PO SCH ×2 (07:50→20:29)
[2019-10-12] MEDS: ENALAPRIL MALEATE 5 MG TAB PO SCH (07:50)
[2019-10-12] MEDS: NICOTINE 14 MG/24 HR PATCH TD SCH (08:26)
[2019-10-12 09:33] LABS: Folate (Folic Acid) 2.3 ng/ml (>5.38)
--- NOTE | 2019-10-12 10:22 | Billing Data ---
Coding Level of Care Code 68522 Subseq Hosp Care Lvl 3
[2019-10-12] MEDS ORDERED: ERGOCALCIFEROL 50,000 UNITS CAP PO SCH (11:00)
[2019-10-12] MEDS: CYANOCOBALAMIN 500 MCG TABLET (VITAMIN B-12) PO SCH (12:03)
[2019-10-12] MEDS: methylPREDNISolone 40 MG in SYRINGE 0 ML IV SCH ×2 (12:03→20:29)
[2019-10-12] MEDS: FOLIC ACID 1 MG TAB PO SCH (12:04)
[2019-10-12] MEDS: POLYETHYLENE (MIRALAX) 17 GM PACK PO PRN (13:47)
[2019-10-12] MEDS: AMOXICILLIN/CLAVULANATE 500 MG TAB PO SCH (17:43)
--- NOTE | 2019-10-12 19:37 | Hospitalist Progress Note ---
Date of Service October 12, 2019 Assessment & Plan (1) Traumatic hematoma of right upper arm: Patient is a 84yo F PMH hypothyroid, HTN, HLD, current daily smoker, who presents with worsening R arm pain and swelling 1 week after traumatic fall which resulted in R humerus fracture R humeral Fracture, hematoma Closed fracture right proximal humerus moderate displacement Monitor H&H -hemoglobin stable at 9.2 Pain control: Tylenol 650 mg every 4 hours as needed, oxycodone 5 mg every 6 hours as needed Ortho consulted: Sling follow-up with Dr. Pulido this week, poor surgical candidate Vitamin D deficiency Vitamin D level 21 Started on vitamin D 50,000 units weekly x6 to 8 weeks Acute blood loss anemia Hemoglobin stable at 9.1 Likely in the setting of hemarthrosis/hematomas versus folate deficiency Folate low and B12 borderline Started on folate 1 mg every morning and vitamin B12 Monitor CBC Persistent hypoxia in setting of active cough Likely in the setting of worsening emphysema/CAP versus mild CHF versus acute anemia CTA chest: Left lower lobe consolidation with left basilar mucus plugging concerning for atelectasis/pneumonia, mild CHF, moderate to severe emphysema, trace pleural effusion Per nursing patient tended to desat after him morphine 2 mg IV, switch to oxycodone instead Received Lasix x1 in the ED Lasix 20 mg IV x1 on 10/12 Started on methyl Pred 40 mg twice daily and Augmentin 875 mg twice daily DuoNeb every 4 hours Heaven, pulmonary toilet with incentive spirometer and flutter valve and Mucinex twice daily Supplemental O2 as needed Encourage smoking cessation CATALINA versus CKD3 BUN/creatinine 26/1.84 unknown baseline, GFR 30 Gentle p.o. hydration only Incidental finding of few scattered pulmonary nodules up to 5 mm Recommend follow-up CT in 1 year Hypothyroid Cont home levothyroxine HTN/HLD Hold home enalapril in the setting of CATALINA -normal at this time Continue rosuvastatin Code: Full Dispo: admit to med/surg DVTP: holding in light of hematoma; SCDs. (2) Right humeral fracture: (3) Hypoxia: (4) Hypothyroid: (5) HTN (hypertension): (6) Hyperlipidemia: (7) CATALINA (acute kidney injury): Supervising Physician Co-Signing Physician Notes Resident Physician Supervision Note: I interviewed and examined the patient. Discussed with Dr. Tatiana Landers and agree with findings and plan as documented in the note. Any exceptions or clarifications are listed here: none. I spoke with pt's niece who is next of kin. Niece had coordinated Ms Daniels's move from [facility] to [place]. Niece reported Ms Daniels had been living in a condo for many years. She stated the condo had very little food in the refrigerator. There was evidence of hoarding throughout the home. She found some old medical records and an old diagnosis on that list was T2DM. She expresses concerns that [facility] cannot adequately provide for her aunt's needs. Exam: gen - NAD, obese mouth - MMM heart - RRR, s1 s2 lungs - decreased BS bases, no wheeze, mild rales LLL abd - soft NT ND BS+ musculo - right shoulder with significant swelling, ecchymoses; sling in place; no change in appearance today skin - hematoma/ecchymoses right shoulder extending down the arm to the hand; finger tips both hands cool; cap refill about 2-3 sec; minimal clubbing fingernails ext - no edema of ankles labs - Cr 1.8 folate 2 B12 293 vitamin D 20 A/P: 1. likely osteoporotic fracture of right humerus in setting of trauma -- nonoperative Rx per ortho; pain control; replace vitamin D; outpatient DEXA down the line 2. macrocytosis - 2nd b12/folate deficiencies; replace both (folate x 30 days; b12 x 6-12 months) 3. CKD - stage uncertain - Cr today 1.8; this is following diuresis. Suspect baseline Cr is 1.3 to 1.5. 4. hypoxia - likely multifactorial - suspect mainly due to COPD (mod-severe emphysema on CT chest) +/- LLL pneumonia +/- hypoventilation in setting of narcotics for right shoulder fracture. I asked staff to check pulse ox on ear or forehead; fingertips, since they are cool, could be giving inaccurate readings. I do not suspect chf/volume overload at this time. 5. acute blood loss anemia - h/h stable. 6. ?LLL pneumonia - reasonable to treat w/ abx. 7. vitamin D def - replace. 8. hypothyroidism - check TSH am. 9. ? h/o DM - check a1c am; glucose levels fasting have been <100 however. PT eval - can return to [facility]. OT eval pending - will she need higher level of care in light of #1 above? Niece extensively updated by phone today; 25 minute phone conversation. Documented By: Prasanna Hernandez MD Subjective This morning patient reports persistent right shoulder pain. Patient denies feeling short of breath however reports cough which is occasionally productive and appears to be at her baseline. However she has required more oxygen and has been hypoxic overnight. Currently denies any shortness of breath, chest pain, headache, lightheadedness, abdominal pain, nausea, vomiting, diarrhea, constipation, hematuria, dysuria. Review of Systems Review of Systems: As per HPI Physical Exam Physical Exam: General: In NAD Neuro: A&O x 4 Pulm: Occasional rhonchi and left lower lobe crackles appreciated, equal breath sounds bilaterally CV: RRR, no m/r/g Abdomen:+BS, no TTP in all quadrants, non-distended MSK: R arm in sling, R shoulder TTP, extensive ecchymosis involving R shoulder/arm/hand, upper back, R side of chest, and R flank, radial pulse 2+ bilaterally, able to move R hand fingers, sensation intact LE: no LE edema, no calf TTP Results & Data Vital Signs (Past 12 Hours) Vital Signs Temp Pulse Pulse Resp BP Pulse Ox 10/12/19 15:37 71 16 92 10/12/19 15:27 36.5 C 70 18 135/68 92 10/12/19 11:18 73 18 94 Resident Activity Tracking Resident Involvement: Resident Care Provided Care Provided: Adult Hospital Medicine (1) Traumatic hematoma of right upper arm Encounter type: subsequent encounter Qualified Code(s): S40.021D - Contusion of right upper arm, subsequent encounter (2) Right humeral fracture Encounter type: subsequent encounter Fracture alignment: displaced Fracture healing: with routine healing Fracture type: closed Humerus Location: proximal
[2019-10-12] MEDS: MAGNESIUM HYDROXIDE SUSP 30 ML UDC PO PRN (20:28)
[2019-10-12] MEDS: ROSUVASTATIN CALCIUM 10 MG TAB PO SCH (20:30)
[2019-10-12] MEDS: guaiFENesin 600 MG TABCR PO SCH (21:26)
--- NOTE | 2019-10-12 23:09 | Billing Data ---
Coding Level of Care Code 55746 Subseq Hosp Care Lvl 3
[2019-10-13] MEDS: LEVOTHYROXINE SODIUM 88 MCG TABLET PO SCH (05:29)
[2019-10-13] MEDS: MAGNESIUM HYDROXIDE SUSP 30 ML UDC PO PRN (05:33)
[2019-10-13] MEDS: ACETAMINOPHEN 325 MG TAB PO PRN ×3 (06:40→19:52)
[2019-10-13] MEDS: ALBUT/IPRATROP 3MG/0.5MG NEB 3 ML VIAL NEB SCH ×4 (07:24→19:19)
[2019-10-13] MEDS: DOCUSATE SODIUM 100 MG CAP PO SCH ×2 (07:55→19:54)
[2019-10-13] MEDS: POLYETHYLENE (MIRALAX) 17 GM PACK PO PRN (07:55)
[2019-10-13] MEDS: OXYCODONE HCL IR 5 MG TAB (IMMEDIATE RELEASE) PO PRN ×2 (07:55→20:51)
[2019-10-13] MEDS: guaiFENesin 600 MG TABCR PO SCH ×2 (07:58→19:52)
[2019-10-13] MEDS: CYANOCOBALAMIN 500 MCG TABLET (VITAMIN B-12) PO SCH (07:58)
[2019-10-13] MEDS: FOLIC ACID 1 MG TAB PO SCH (07:58)
[2019-10-13] MEDS: AMOXICILLIN/CLAVULANATE 500 MG TAB PO SCH ×2 (07:58→16:15)
[2019-10-13] MEDS: NICOTINE 14 MG/24 HR PATCH TD SCH (07:58)
[2019-10-13] MEDS: methylPREDNISolone 40 MG in SYRINGE 0 ML IV SCH ×2 (08:02→20:51)
[2019-10-13 08:23] LABS: BUN Creatinine Ratio 18.7 (10-20); Calcium 9.5 mg/dl (8.5-10.1); Est GFR (African American) 31.3; Potassium 4.7 mmol/L (3.5-5.1)
[2019-10-13 08:34] LABS: Thyroid Stimulating Hormone 23.5 uIu/ml (0.300-4.500)
[2019-10-13 10:11] LABS: Estimated Average Glucose 97 mg/dl
--- NOTE | 2019-10-13 17:15 | Hospitalist Progress Note ---
Date of Service October 13, 2019 Assessment & Plan (1) Traumatic hematoma of right upper arm: Patient is a 84yo F PMH hypothyroid, HTN, HLD, current daily smoker, who presents with worsening R arm pain and swelling 1 week after traumatic fall which resulted in R humerus fracture R humeral Fracture, hematoma Closed fracture right proximal humerus moderate displacement Hemoglobin stable at 9.2 Pain control: Tylenol 650 mg every 4 hours as needed, oxycodone 5 mg every 6 hours as needed Ortho consulted: Sling follow-up with Dr. Pulido this week, poor surgical candidate Vitamin D deficiency Vitamin D level 21 Started on vitamin D 50,000 units weekly x6 to 8 weeks Acute blood loss anemia Hemoglobin stable at 9.1 Likely in the setting of hemarthrosis/hematomas versus folate deficiency Folate low and B12 borderline Started on folate 1 mg every morning and vitamin B12 Monitor CBC Persistent hypoxia in setting of active cough Likely in the setting of worsening emphysema/CAP versus mild CHF versus acute anemia CTA chest: Left lower lobe consolidation with left basilar mucus plugging concerning for atelectasis/pneumonia, mild CHF, moderate to severe emphysema, trace pleural effusion Per nursing patient tended to desat after him morphine 2 mg IV, switch to oxycodone instead Received Lasix x1 in the ED Lasix 20 mg IV x1 on 10/12 Started on methyl Pred 40 mg twice daily and Augmentin 875 mg twice daily day 12/13 DuoNeb every 4 hours Heaven, pulmonary toilet with incentive spirometer and flutter valve and Mucinex twice daily Supplemental O2 as needed Encourage smoking cessation CATALINA versus CKD3 - improving BUN/creatinine 32/1.7 unknown baseline, GFR 30 Gentle p.o. hydration only Incidental finding of few scattered pulmonary nodules up to 5 mm Recommend follow-up CT in 1 year Hypothyroid TSH 23.5 - pt reports not taking levothyroxine for about 5 weeks Cont home levothyroxine HTN/HLD Hold home enalapril in the setting of CATALINA -normotensive at this time HgA1c 5 Continue rosuvastatin Code: Full Dispo: admit to med/surg DVTP: holding in light of hematoma; SCDs. (2) Right humeral fracture: (3) Hypoxia: (4) Hypothyroid: (5) HTN (hypertension): (6) Hyperlipidemia: (7) CATALINA (acute kidney injury): Subjective This morning patient reports right shoulder pain only thing bothering her. Patient denies feeling short of breath and reports persistent productive cough which she says is her baseline due to her smoking history. Her oxygen requirement has come down 2.5 L/min from 2 to 3 L yesterday after starting her on antibiotics and steroids. She was constipated this morning and per nursing staff received stool softener MiraLAX and some prunes after which she had 4 episodes of diarrhea. Loose not dark in color or bloody. Currently denies any shortness of breath, chest pain, headache, lightheadedness, abdominal pain, nausea, vomiting, constipation, hematuria, dysuria. Review of Systems Review of Systems: As per HPI Physical Exam Physical Exam: General: In NAD Neuro: A&O x 4 Pulm: Occasional rhonchi, diminished but equal breath sounds bilaterally CV: RRR, no m/r/g Abdomen:+BS, no TTP in all quadrants, non-distended MSK: R arm in sling, R shoulder TTP, extensive ecchymosis involving R shoulder/arm/hand, upper back, R side of chest, and R flank, radial pulse 2+ bilaterally, able to move R hand fingers somewhat cool to touch, sensation in tact, cap refill 2 secs LE: no LE edema, no calf TTP Results & Data Vital Signs (Past 12 Hours) Vital Signs Temp Pulse Pulse Pulse Resp BP Pulse Ox 10/13/19 15:36 36.5 C 62 20 127/61 94 10/13/19 15:19 68 16 96 10/13/19 11:40 77 16 91 10/13/19 11:20 90 10/13/19 11:18 88 L 10/13/19 08:01 36.4 C L 60 11 L 148/81 H 95 10/13/19 07:27 58 L 18 90 Resident Activity Tracking Resident Involvement: Resident Care Provided Care Provided: Adult Hospital Medicine (1) Traumatic hematoma of right upper arm Encounter type: subsequent encounter Qualified Code(s): S40.021D - Contusion of right upper arm, subsequent encounter (2) Right humeral fracture Encounter type: subsequent encounter Fracture alignment: displaced Fracture healing: with routine healing Fracture type: closed Humerus Location: proximal
[2019-10-13] MEDS: ROSUVASTATIN CALCIUM 10 MG TAB PO SCH (19:52)
[2019-10-14] MEDS: ACETAMINOPHEN 325 MG TAB PO PRN (01:30)
[2019-10-14] MEDS: OXYCODONE HCL IR 5 MG TAB (IMMEDIATE RELEASE) PO PRN ×3 (02:32→18:37)
[2019-10-14] MEDS: LEVOTHYROXINE SODIUM 88 MCG TABLET PO SCH (05:56)
[2019-10-14] MEDS: ALBUT/IPRATROP 3MG/0.5MG NEB 3 ML VIAL NEB SCH ×4 (06:58→19:45)
[2019-10-14] MEDS ORDERED: DOCUSATE SODIUM 100 MG CAP PO PRN (07:44)
[2019-10-14 07:55] LABS: BUN Creatinine Ratio 20.2 (10-20); Calcium 10.1 mg/dl (8.5-10.1); Creatinine Clr Calc Pharmacy 23.5 ml/min; Est GFR (Non-African American) 25.1
--- NOTE | 2019-10-14 09:20 | Billing Data ---
Coding Level of Care Code 68710 Subseq Hosp Care Lvl 3
[2019-10-14] MEDS: FOLIC ACID 1 MG TAB PO SCH (09:41)
[2019-10-14] MEDS: FERROUS SULFATE 325 MG TAB PO SCH ×2 (09:41→16:31)
[2019-10-14] MEDS: CYANOCOBALAMIN 500 MCG TABLET (VITAMIN B-12) PO SCH (09:41)
[2019-10-14] MEDS: guaiFENesin 600 MG TABCR PO SCH ×2 (09:42→20:22)
[2019-10-14] MEDS: AMOXICILLIN/CLAVULANATE 500 MG TAB PO SCH ×2 (09:42→16:31)
[2019-10-14] MEDS: methylPREDNISolone 40 MG in SYRINGE 0 ML IV SCH ×2 (09:42→20:22)
[2019-10-14] MEDS: NICOTINE 14 MG/24 HR PATCH TD SCH (09:42)
--- NOTE | 2019-10-14 12:56 | Hospitalist Progress Note ---
Date of Service October 14, 2019 Assessment & Plan (1) Traumatic hematoma of right upper arm: Patient is a 84yo F PMH hypothyroid, HTN, HLD, current daily smoker, who presents with worsening R arm pain and swelling 1 week after traumatic fall which resulted in R humerus fracture R humeral Fracture, hematoma Closed fracture right proximal humerus moderate displacement Hemoglobin stable at 9.2 Pain control: Tylenol 650 mg every 4 hours as needed, oxycodone 5 mg every 6 hours as needed Ortho consulted: Sling follow-up with Dr. Pulido this week, poor surgical candidate Vitamin D deficiency Vitamin D level 21 Started on vitamin D 50,000 units weekly x6 to 8 weeks Acute blood loss anemia Hemoglobin stable at 9.1 Likely in the setting of hemarthrosis/hematomas versus folate deficiency Folate low and B12 borderline Started on folate 1 mg every morning and vitamin B12 Monitor CBC Persistent hypoxia in setting of active cough Likely in the setting of worsening emphysema/CAP versus mild CHF versus acute anemia CTA chest: Left lower lobe consolidation with left basilar mucus plugging concerning for atelectasis/pneumonia, mild CHF, moderate to severe emphysema, trace pleural effusion Per nursing patient tended to desat after him morphine 2 mg IV, switch to oxycodone instead Received Lasix x1 in the ED Lasix 20 mg IV x1 on 10/12 Started on prednisone 50mg daily (switched from methylpred 40mg BID) and Augmentin 875 mg twice daily day 01/10 DuoNeb every 4 hours Heaven, pulmonary toilet with incentive spirometer and flutter valve and Mucinex twice daily Supplemental O2 as needed Encourage smoking cessation CATALINA versus CKD3 BUN/creatinine 32/1.8 unknown baseline, GFR 30 Gentle p.o. hydration only Incidental finding of few scattered pulmonary nodules up to 5 mm Recommend follow-up CT in 1 year Hypothyroid TSH 23.5 - pt reports not taking levothyroxine for about 5 weeks Cont home levothyroxine HTN/HLD Hold home enalapril in the setting of CATALINA -normotensive at this time HgA1c 5 Continue rosuvastatin Code: Full Dispo: back to personal home tomorrow, [place] DVTP: holding in light of hematoma; SCDs. (2) Right humeral fracture: (3) Hypoxia: (4) Hypothyroid: (5) HTN (hypertension): (6) Hyperlipidemia: (7) CATALINA (acute kidney injury): Supervising Physician Co-Signing Physician Notes Resident Physician Supervision Note: I interviewed and examined the patient at bedside with PGY3 Dr. Tatiana Landers. I agree with her findings and plan as documented in the note. Any exceptions or clarifications are listed here: none. Pt sitting in chair during rounds. She "feels good today" and with exception of mild right shoulder pain she feels well. Cough is improved. She was off O2 during the visit and had no dyspnea. She was happy to hear she could return to [place] tomorrow. Exam: gen - NAD, obese, looks good mouth - MMM heart - RRR, s1 s2 lungs - decreased BS bases, no wheeze, no rales abd - soft NT ND BS+ musculo - right shoulder with significant swelling, ecchymoses; sling in place; evolving ecchymoses skin - hematoma/ecchymoses right shoulder extending down the arm to the hand; this too is evolving ext - no edema of ankles, pulses 2+ b/l labs - Cr 1.8 K 5.2 A/P: 1. likely osteoporotic fracture of right humerus in setting of trauma -- nonoperative Rx per ortho; pain control; replace vitamin D; outpatient DEXA down the line; keep sling in place; outpatient ortho f/u 2. macrocytosis - 2nd b12/folate deficiencies; replace both (folate x 30 days; b12 x 6-12 months) 3. CKD - stage uncertain - Cr today 1.8; was 1.7 yesterday. Repeat BMP in am to help w/ staging of CKD. 4. hypoxia - likely multifactorial - suspect mainly due to COPD (mod-severe emphysema on CT chest) +/- LLL pneumonia. Still requiring NC O2 - will obtain formal 2-step. No evidence of volume overload. Probable COPD exacerbation - stop IV steroids; transition to PO prednisone in am. 5. acute blood loss anemia - h/h stable. 6. ?LLL pneumonia - day #2/7 augmentin. stable. 7. vitamin D def - replace. 8. hypothyroidism - decompensated but patient admitted to not taking her synthroid for weeks/months. Resume synthroid at prior dose; repeat TSH 4-6 weeks as outpatient. 9. ? h/o DM - a1c 5%; no evidence of pre-DM or DM. 10. morbid obesity - BMI 40 11. minimal hyperkalemia - repeat BMP am spoke with Shayy from social work - will return to [facility] tomorrow will likely need O2 niece - next of kin - is aware of plan of care Documented By: Prasanna Hernandez MD Subjective This morning patient reports right shoulder pain improved. Patient denies feeling short of breath and reports persistent productive cough which she says is her baseline due to her smoking history. She was off oxygen in the afternoon when revisited. Diarrhea has improved and was C.diff negative. Currently denies any shortness of breath, chest pain, headache, lightheadedness, abdominal pain, nausea, vomiting, constipation, hematuria, dysuria. Review of Systems Review of Systems: As per HPI Physical Exam Physical Exam: General: In NAD Neuro: A&O x 4 Pulm: Occasional wheezing, diminished but equal breath sounds bilaterally CV: RRR, no m/r/g Abdomen:+BS, no TTP in all quadrants, non-distended MSK: R arm in sling, R shoulder TTP, extensive ecchymosis involving R shoulder/arm/hand, upper back, R side of chest, and R flank, radial pulse 2+ bilaterally, able to move R hand fingers somewhat cool to touch, sensation intact, cap refill 3 secs LE: no LE edema, no calf TTP Results & Data Vital Signs (Past 12 Hours) Vital Signs Temp Pulse Pulse Pulse Resp BP Pulse Ox 10/14/19 10:44 78 18 92 10/14/19 07:30 36.5 C 61 20 145/65 H 96 10/14/19 06:58 69 16 94 Resident Activity Tracking Resident Involvement: Resident Care Provided Care Provided: Adult Hospital Medicine (1) Traumatic hematoma of right upper arm Encounter type: subsequent encounter Qualified Code(s): S40.021D - Contusion of right upper arm, subsequent encounter (2) Right humeral fracture Encounter type: subsequent encounter Fracture alignment: displaced Fracture healing: with routine healing Fracture type: closed Humerus Location: proximal
[2019-10-14] MEDS: ROSUVASTATIN CALCIUM 10 MG TAB PO SCH (20:22)
[2019-10-15] MEDS: ACETAMINOPHEN 325 MG TAB PO PRN ×2 (05:03→19:25)
--- NOTE | 2019-10-15 05:27 | Billing Data ---
Date of Service October 14, 2019 Coding Level of Care Code 93901 Subseq Hosp Care Lvl 3
[2019-10-15] MEDS: LEVOTHYROXINE SODIUM 88 MCG TABLET PO SCH (05:52)
[2019-10-15 07:43] LABS: Basophils # (auto) 0.01 K/uL (0-0.2); Basophils % (auto) 0.1 %; Hematocrit (blood only) 28.9 % (37-47); Hemoglobin 9.2 g/dL (12.0-16.0); Immature Granulocytes # (auto) 0.05 K/uL (0.00-0.02); Immature Granulocytes % (auto) 0.6 %; Lymphocytes # (auto) 0.95 K/uL (1.2-3.4); Lymphocytes % (auto) 11.3 %; Mean Corpuscular Hemoglobin 36.5 pg (25-34); Mean Corpuscular Hgb Conc 31.8 g/dL (32-36); Mean Corpuscular Volume 114.7 fL (80-100); Mean Platelet Volume 10.4 fL (7.4-10.4); Monocytes # (auto) 0.22 K/uL (0.11-0.59); Monocytes % (auto) 2.6 %; Neutrophils # (auto) 7.15 K/uL (1.4-6.5); Neutrophils % (auto) 85.4 %; Platelet Count 222 K/uL (130-400); RDW Coefficient of Variation 16.8 % (11.5-14.5); RDW Standard Deviation 69.3 fL (36.4-46.3); Red Blood Count 2.52 M/uL (4.2-5.4); White Blood Count 8.38 K/uL (4.8-10.8)
[2019-10-15] MEDS: ALBUT/IPRATROP 3MG/0.5MG NEB 3 ML VIAL NEB SCH ×4 (07:47→19:32)
[2019-10-15 08:14] LABS: BUN Creatinine Ratio 26.2 (10-20); Calcium 9.8 mg/dl (8.5-10.1); Creatinine Clr Calc Pharmacy 25.3 ml/min; Est GFR (African American) 31.8; Est GFR (Non-African American) 27.4
[2019-10-15 08:24] LABS: Macrocytosis Present
[2019-10-15] MEDS ORDERED: SODIUM POLYSTYRENE SULFONATE 15G/60ML SUSP PO STA (08:44)
[2019-10-15] MEDS: AMOXICILLIN/CLAVULANATE 500 MG TAB PO SCH ×2 (09:08→17:03)
[2019-10-15] MEDS: FOLIC ACID 1 MG TAB PO SCH (09:08)
[2019-10-15] MEDS: CYANOCOBALAMIN 500 MCG TABLET (VITAMIN B-12) PO SCH (09:08)
[2019-10-15] MEDS: OXYCODONE HCL IR 5 MG TAB (IMMEDIATE RELEASE) PO PRN ×2 (09:08→16:36)
[2019-10-15] MEDS: guaiFENesin 600 MG TABCR PO SCH ×2 (09:08→20:23)
[2019-10-15] MEDS: FERROUS SULFATE 325 MG TAB PO SCH ×2 (09:08→17:03)
[2019-10-15] MEDS: NICOTINE 14 MG/24 HR PATCH TD SCH (09:09)
[2019-10-15] MEDS: predniSONE 20 MG TAB PO SCH (09:09)
--- NOTE | 2019-10-15 15:59 | Hospitalist Progress Note ---
Date of Service October 15, 2019 Assessment & Plan (1) Traumatic hematoma of right upper arm: Patient is a 84yoF PMH hypothyroid, HTN, HLD, current daily smoker, who presents with worsening R arm pain and swelling 1 week after traumatic fall which resulted in R humerus fracture R humeral Fracture, hematoma Closed fracture right proximal humerus moderate displacement Hemoglobin stable at 9.2 Pain control: Tylenol 650 mg every 4 hours as needed, oxycodone 5 mg every 6 hours as needed Ortho consulted: Sling follow-up with Dr. Pulido this week, poor surgical candidate Vitamin D deficiency Vitamin D level 21 Started on vitamin D 50,000 units weekly x 8 weeks Acute blood loss anemia Hemoglobin stable at 9.2 Likely in the setting of hemarthrosis/hematomas versus folate deficiency Folate low and B12 borderline Started on folate 1 mg every morning and vitamin B12 1000mcg daily Monitor CBC Persistent hypoxia in setting of active chronic cough Likely in the setting of worsening emphysema/CAP versus mild CHF versus acute anemia CTA chest: Left lower lobe consolidation with left basilar mucus plugging concerning for atelectasis/pneumonia, mild CHF, moderate to severe emphysema, trace pleural effusion Received Lasix 20mg IV x 2 Started on prednisone 50mg daily (switched from methylpred 40mg BID) and Augmentin 875 mg twice daily day 02/10 DuoNeb every 4 hours Heaven, pulmonary toilet with incentive spirometer and flutter valve and Mucinex twice daily Supplemental O2 as needed Encourage smoking cessation CATALINA versus CKD3 BUN/creatinine 44/1.69 unknown baseline, GFR 30 Requested records from hospital in [place] to determine baseline renal function Gentle p.o. hydration only Hyperkalemia Noted to have K of 6 on 10/15/19 EKG concerning for wideing QRS duration 130sec, rate 58 sinus arthur/arrhythmia Qtc 469 Given Keyexalate 15mg x 1 Incidental finding of few scattered pulmonary nodules up to 5 mm Recommend follow-up CT in 1 year Hypothyroid TSH 23.5 - pt reports not taking levothyroxine for about 5 weeks Cont home levothyroxine dose HTN/HLD Hold home enalapril in the setting of CATALINA HgA1c 5 Continue rosuvastatin Code: Full Dispo: back to personal home tomorrow, [place] DVTP: holding in light of hematoma; SCDs. (2) Right humeral fracture: (3) Hypoxia: (4) Hypothyroid: (5) HTN (hypertension): (6) Hyperlipidemia: (7) CATALINA (acute kidney injury): Supervising Physician Co-Signing Physician Notes Resident Physician Supervision Note: I interviewed and examined the patient. I discussed Ms Daniels's care with PGY3 Dr. Tatiana Landers. I agree with her findings and plan as documented in the note. Any exceptions or clarifications are listed here: patient with K of 6 this am; was 5.2 yesterday. We transferred Ms Daniels to telemetry. EKG this am with LBBB- previous EKG with such- but QRS slightly longer today likely due to the potassium. She had NO cardiopulmonary symptoms today. "I feel good" she stated. No concerns from staff. Exam: gen - NAD, obese, looks good mouth - MMM heart - RRR, s1 s2 lungs - decreased BS bases especially left base, no wheeze, no rales abd - soft NT ND BS+ musculo - right shoulder with significant swelling, ecchymoses but overall much improved from prior exams; sling in place; evolving ecchymoses skin - hematoma/ecchymoses right shoulder extending down the arm to the hand; this too is evolving; the ecchymoses on right hand is resolving ext - no edema of ankles, pulses 2+ b/l labs - Cr 1.6 K 6 EKG - LBBB A/P: 1. likely osteoporotic fracture of right humerus in setting of trauma -- nonoperative Rx per ortho; pain control; replace vitamin D; outpatient DEXA down the line; keep sling in place; outpatient ortho f/u 2. macrocytosis with anemia - 2nd b12/folate deficiencies; decompensated hypothyroidism will contribute as well; replace both (folate x 30 days; b12 x 6- 12 months); resumed synthroid; h/h have been stable 3. CKD - stage uncertain - Cr today 1.6; this may be baseline. Repeat BMP am. We have requested records from [facility] in [facility] - apparently it is affiliated / [facility] - awaiting those records to help us determine chronicity of her renal function. Suspect it is chronic - Cr has been 1.5 or higher all of stay. 4. hypoxia - likely multifactorial - suspect mainly due to COPD (mod-severe emphysema on CT chest) +/- LLL pneumonia. 2-step completed -- 1 L NC O2 at rest; 4 L NC O2 with activity. Was smoking up until recently. Probable COPD exacerbation - resolved; prednisone taper. 5. acute blood loss anemia - h/h stable. 6. ?LLL pneumonia - day #3 augmentin. stable. Recommend repeat CT in several months as outpatient to re-eval this infiltrate as well as the pulmonary nodules seen on CT. 7. vitamin D def - replace. 8. hypothyroidism - decompensated but patient admitted to not taking her synthroid for weeks/months. Resume synthroid at prior dose; repeat TSH 4-6 weeks as outpatient. 9. ? h/o DM - a1c 5%; no evidence of pre-DM or DM. 10. morbid obesity - BMI 40 11. hyperkalemia - kayexalate 15gm x 1. Repeat K this afternoon has normalized. She could have had a minimal amount of hemolysis that contributed to level of 6 this am as well. Either way it is improved. 12. LBBB - echo w/ preserved EF; no ischemic symptoms. LBBB seen on EKG at time of admission. This is likely chronic. spoke with Lucy from social work - will return to [facility] tomorrow on 10/16 will d/c with NC O2 in place niece - next of kin - updated by phone today at 1215pm; discussed #11 with her as the reason for delay in d/c Documented By: Prasanna Hernandez MD Subjective This morning patient denies feeling short of breath and reports improving productive cough (at baseline pt has cough - smoking hx). She has remained on 1L NC. Diarrhea has improved and was C.diff negative. Review of Systems Review of Systems: Denies any fever, chills, chest pain, headache, lightheadedness, abdominal pain, nausea, vomiting, constipation, hematuria, dysuria. Physical Exam Physical Exam: General: In NAD Neuro: A&O x 4 Pulm: CTAB, diminished but equal breath sounds bilaterally CV: RRR, no m/r/g Abdomen:+BS, no TTP in all quadrants, non-distended MSK: R arm in sling, R shoulder improved TTP, improving ecchymosis involving R shoulder/arm/hand, upper back, R side of chest, and R flank, radial pulse 2+ bilaterally, able to move R hand fingers, warm to touch, sensation intact, cap refill 2 secs LE: no LE edema, no calf TTP Results & Data Vital Signs (Past 12 Hours) Vital Signs Temp Pulse Pulse Pulse Pulse Resp BP 10/15/19 15:58 58 L 10/15/19 15:50 36.3 C L 60 18 147/79 H 10/15/19 11:29 71 18 10/15/19 11:23 60 10/15/19 11:13 36.3 C L 62 18 144/77 H 10/15/19 08:45 36.8 C 54 L 54 L 61 11 L 162/77 H 10/15/19 08:04 36.8 C 54 L 11 L 162/77 H 10/15/19 07:50 54 L 16 Pulse Ox 10/15/19 15:58 10/15/19 15:50 95 10/15/19 11:29 91 10/15/19 11:23 10/15/19 11:13 91 10/15/19 08:45 95 10/15/19 08:04 95 10/15/19 07:50 98 Resident Activity Tracking Resident Involvement: Resident Care Provided Care Provided: Adult Hospital Medicine (1) Traumatic hematoma of right upper arm Encounter type: subsequent encounter Qualified Code(s): S40.021D - Contusion of right upper arm, subsequent encounter (2) Right humeral fracture Encounter type: subsequent encounter Fracture alignment: displaced Fracture healing: with routine healing Fracture type: closed Humerus Location: proximal
--- NOTE | 2019-10-15 17:50 | Billing Data ---
Date of Service October 15, 2019 Coding Level of Care Code 17776 Subseq Hosp Care Lvl 3
[2019-10-15] MEDS: ROSUVASTATIN CALCIUM 10 MG TAB PO SCH (20:23)
[2019-10-16] MEDS: OXYCODONE HCL IR 5 MG TAB (IMMEDIATE RELEASE) PO PRN (00:07)
[2019-10-16] MEDS: LEVOTHYROXINE SODIUM 88 MCG TABLET PO SCH (05:24)
[2019-10-16] MEDS: ALBUT/IPRATROP 3MG/0.5MG NEB 3 ML VIAL NEB SCH ×3 (07:32→15:16)
[2019-10-16 07:46] LABS: BUN Creatinine Ratio 26.5 (10-20); Calcium 9.5 mg/dl (8.5-10.1); Creatinine Clr Calc Pharmacy 25.5 ml/min; Est GFR (Non-African American) 27.6; Potassium 4.8 mmol/L (3.5-5.1)
[2019-10-16] MEDS: FOLIC ACID 1 MG TAB PO SCH (08:47)
[2019-10-16] MEDS: CYANOCOBALAMIN 500 MCG TABLET (VITAMIN B-12) PO SCH (08:47)
[2019-10-16] MEDS: predniSONE 20 MG TAB PO SCH (08:47)
[2019-10-16] MEDS: AMOXICILLIN/CLAVULANATE 500 MG TAB PO SCH (08:48)
[2019-10-16] MEDS: NICOTINE 14 MG/24 HR PATCH TD SCH (08:48)
[2019-10-16] MEDS: guaiFENesin 600 MG TABCR PO SCH (08:48)
[2019-10-16] MEDS: FERROUS SULFATE 325 MG TAB PO SCH (08:48)
[2019-10-16] MEDS: ACETAMINOPHEN 325 MG TAB PO PRN (08:53)
--- NOTE | 2019-10-16 13:27 | Discharge Summary ---
Date of Service October 16, 2019 Admission HPI Per Admitting Provider Patient is a 84yo F transplant from [place], H hypothyroid, HTN, HLD, current daily smoker, who presents with worsening R arm pain and swelling 1 week after traumatic fall which resulted in R clavicle and R humerus fracture. Patient lives alone in [place], and (per hx provided by family at bedside), she was found in her house on 10/03, with last well known 10/31; she was brought to a hospital in [place], [place] where she was treated in a trauma unit for a fractured R humerus and clavicle. Family frustrated as they were told she would have a nerve block for pain, then she would have surgery, and then conservative management was opted for. She was moved to a nursing facility ([facility]) from [place] on 10/07 to be closer to family here. Relative notes that while in [place], she would occasionally dip her oxygen level, but a test (2step?) was performed prior to discharge and it was deemed she did not qualify for oxygen. Relative notes her mental status has declined lately, but no formal diagnosis of dementia. Mental status significantly altered since injury. She also has a scheduled for an outpatient ortho appointment on 10/11/[address] Jj. In the ER, CTAngio of the arm revealed a large effusion/hemarthrosis. US was negative for PE. Ortho was called who recommend no action at this time, but would see this patient in the morning. Patient was noted to have her oxygen saturation drop to 88% on room air while in the ER. Due to pain level and new oxygen requirement, she will be admitted for further evaluation. Admission Exam Per Admitting Provider Constitutional: WD/WN, vitals as above + obese Eyes: PERRL, conjunctivae normal, anicteric sclerae ENMT: external ear and nose normal, oropharynx normal Neck: normal visual inspection Respiratory: Auscultation: + diminished lung sounds Pt unable to follow commands to expose back or take deep breaths Cardiovascular: RRR, no murmur, no edema Gastrointestinal (Abdomen): normal bowel sounds, soft, nontender, no hepatosplenomegaly Musculoskeletal: Head/Neck/Chest: normocephalic and head atraumatic Extensive hematoma involving entirety of R arm and shoulder; R arm is tender and swollen. Both arms neurovascularly intact. Skin: no rashes, warm and dry Trauma: + contusion and + hematoma Neurologic: PERRL, EOMI, accommodation nl, no face palsy, no dysarthria moves all extremities Psychiatric: Orientation: alert; + not oriented x 3 Principal Diagnosis Right humerus fracture Anemia Hyperkalemia COPD exacerbation Community acquired pneumonia Discharge Exam Constitutional WD/WN, vitals as above + obese Eyes PERRL, conjunctivae normal, anicteric sclerae ENMT external ear and nose normal, oropharynx normal Neck normal visual inspection Respiratory Auscultation: + diminished lung sounds Cardiovascular RRR, no murmur, no edema Gastrointestinal (Abdomen) normal bowel sounds, soft, nontender, no hepatosplenomegaly Musculoskeletal Head/Neck/Chest: normocephalic and head atraumatic Skin no rashes, warm and dry Trauma: + contusion (left shoulder) Neurologic moves all extremities (right upper extremity not moved due to acute fracture, NV intact distally) and awake Psychiatric Orientation: alert and oriented to place; + not oriented to person and + not oriented to time Discharge Data Allergies Allergy/AdvReac Type Severity Reaction Status Date / Time No Known Allergies Allergy Unverified 10/09/19 20:56 Consultations 10/09/19 22:22 ED Decision to Admit Stat 10/10/19 01:59 Consult Case Management - Discharge Planning Routine Consult Orthopedic Surgery Routine 10/15/19 09:59 Consult Health Information Management Stat Ordered Studies 10/09/19 18:15 CT angio UE RT w inc wo if don Stat 10/09/19 19:57 US venous doppler UE RT Stat 10/10/19 14:08 CT angio chest PE protocol Stat Hospital Course (1) Traumatic hematoma of right upper arm: Zuleyka Daniels is an 84 year old female admitted to [facility] from October 10 to 2018 due to difficulty breathing and right arm fracture. She was evaluated by orthopedics and advised for right arm sling with outpatient follow up. She was also having shortness of breath and diagnosed with pneumonia treated with appropriate antibiotics. She was also found to be anemic suspect somewhat secondary to bruising from current fracture but also diagnosed with B12, folate and iron deficiency and started on supplementation for these. Her vitamin D level was also found to be low and we have started supplementation for this in addition. She was also found to have lung nodules on CT imaging and recommend follow-up with further imaging in 1 year. Recommend CXR in 4-6 weeks to check for resolution fo left lower lobe pneumonia. Ramipril was discontinued due to hyperkalemia, recommend following up with her PCP regarding possible alternative blood pressure medication. (2) Hypothyroid: (3) HTN (hypertension): (4) Hyperlipidemia: (5) CATALINA (acute kidney injury): Total Time Total Time Spent Total Time Spent (In Minutes): 45 Total Time Includes: Examination of the Patient, Discharge Planning and Medication Reconciliation Discharge Plan Discharge Items Patient Disposition: Personal Alf Reason For Visit: HEMATOMA, NEW OXYGEN DEMAND Discharge Diagnosis: R humerus fracture anemia borderline hypoxia Hyperkalemia COPD exacerbation Community acquired pneumonia Condition on Discharge: Good Health Concerns: please remain tobacco free. consider medication assistance like nicotine patches. please talk to your PCP about this Activity: Resume your previous activity Activity Comment: as tolerated. assistance to avoid falling. further instructions per ortho Lifting: None Non-emergency contact: Primary Care Provider and Surgeon Call non-emergency contact if: your pain is worsening Follow-up/Referrals: Yadiel Kumar MD [Primary Care Provider] - Nathan Jj MD [Surgeon] - (as scheduled on 10.11.2019) Diet: Heart Healthy Addtl Attending Provider Instructions: Ms. Daniels you were admitted for concern of difficulty breathing and right arm fracture. You were found to have broken your right humerus. You were evaluated by orthopedics doctors who advised that you should wear a right arm sling. You received pain control during admission. You are also having difficulty breathing and found to have pneumonia. You were treated and need treatment after discharge as well in addition to oxygen. You were also found to have anemia as your blood counts were low probably because you lost some blood as a result of bruises in your right arm and also had some vitamin deficiencies that could cause anemia such as folate and B12. We have started you on B12 and folate vitamin supplements as well as an iron pill to help improve your blood counts/anemia. Your vitamin D level was also found to be low and we have started you on a supplement. Vitamin D is improve for your bone health and healing from your fracture. You were also found to have some pulmonary (lung) nodules which you will need to follow-up with further imaging in 1 year. Your doctor also needs to do another chest x-ray to make sure your left lower lobe pneumonia resolves in about a month. Please follow instructions below after discharge: Take antibiotic Augmentin 500 mg twice daily for another 6-1/2 days, your next dose will be this evening. Take prednisone taper course: Prednisone 40 mg (4pills) daily for 1 day then 30 mg (3 pills) daily for 1 day then 20 mg (2 pills) daily for one 1 day then 10 mg (1 pill) daily for 1 day You have also been prescribed albuterol and Spiriva inhalers to help with your breathing. Use albuterol inhaler every 4 hours as needed for shortness of breath. Use your Spiriva inhaler 2 puffs daily Tylenol up to 1000mg every 8 hours as needed for shoulder pain Please take vitamin D 50,000 IU, 1 pill weekly (on sundays) for the next 7 weeks Please take folic acid 1 mg daily Please take vitamin B12 1000mcg daily Take ferrous sulfate 325 mg twice a day, iron supplement Start taking your levothyroxine 88 mcg daily for hypothyroidism Ramipril discontinued due to elevated potassium levels. Please follow-up with your primary care doctor Your primary care doctor will need follow-up on your lung nodules incidentally found by doing another chest CT in 1 year and you will need a repeat chest x-ray in about a month to make sure your pneumonia has resolved Follow up with orthopedics, Dr. Jj as scheduled Pending Studies at Discharge: No Stand-Alone Forms: [employer] Two B, Smoking Cessation Skilled Items Patient informed of condition?: Yes DNR: No Discharge Level of Care: Other Communicable Disease: No Discharge Prognosis: Stable Lines: None Urinary Catheter: No Medications and DC Order Prescriptions: New ferrous sulfate 325 mg (65 mg iron) Tablet,Delayed Release (Dr/Ec) 325 mg PO BIDM Qty: 60 RF: 0 amoxicillin-pot clavulanate 500-125 mg Tablet 1 tab PO BIDM Qty: 13 RF: 0 cyanocobalamin (vitamin B-12) 500 mcg Tablet 1,000 mcg PO QAM Qty: 30 RF: 0 folic acid 1 mg Tablet 1 mg PO QAM Qty: 30 RF: 0 ergocalciferol (vitamin D2) 50,000 unit Capsule 50,000 unit PO Q7D@0900 Qty: 7 RF: 0 Spiriva Respimat 1.25 mcg/actuation mist 2 puffs INH DAILY Qty: 4 RF: 0 albuterol sulfate 90 mcg/actuation aerosol powdr breath activated 2 puffs INH Q4H PRN (Reason: shortness of breath or wheezing) Qty: 1 RF: 0 prednisone 10 mg tablet 10 mg PO DAILY Qty: 10 RF: 0 Continued tramadol 50 mg Tablet 25 mg PO Q8 PRN (Reason: Pain) RF: 0 levothyroxine 88 mcg Tablet 88 mcg PO [id number] RF: 0 levothyroxine 88 mcg Tablet 44 mcg PO .QSUNDAY RF: 0 docusate sodium 100 mg Tablet 100 mg PO BID RF: 0 nicotine 7 mg/24 hr Patch 24 Hour 1 patch TRANSDERMAL DAILY RF: 0 rosuvastatin 10 mg Tablet 10 mg PO HS RF: 0 acetaminophen [Tylenol] 325 mg Capsule 650 mg PO QID RF: 0 Biofreeze (menthol) 4 % Gel 1 applic TOPICAL QID PRN (Reason: Pain) RF: 0 Discontinued ramipril 1.25 mg Capsule 1.25 mg PO DAILY RF: 0 cholecalciferol (vitamin D3) [Vitamin D3] 1,000 unit Tablet,Chewable 1,000 unit PO DAILY RF: 0 Discharge Orders: Discharge Order (Routine); Ordered 10/16/19 Ordered By: Prasanna Anders Admission Data Admit Date/Time: 10/10/19 00:47 Attending Provider: Prasanna Anders Admit Provider: Halle Rowe Primary Care Provider: Yadiel Kumar Other Providers: Donell Ibarra ; Fermín Hernandez Other Interventions: Discharge Summary Assessment (RN) Last Done: 10/16/19 14:02 DC Date/Time DO NOT enter until pt leaves facility: 10/16/19 16:43
== END 2019-10-16 16:43 | disposition home or self-care (01) | DRG 542 ==
LOC: ED 17:58 → SUATTDRO 10-10 00:47 → 3N 10-10 00:47 → 2N 10-15 11:05